=== PATIENT | male | born 1950 | race American Indian/Alaskan Native ===

== ENCOUNTER 2016-12-02 23:19 | Emergency (ER) | payer MEDICARE ==
[2016-12-03] MEDS ORDERED: NACL 0.9% 1000 ML 1,000 ML IV ONE ×2 (01:23→03:27)
[2016-12-03] MEDS ORDERED: TORADOL IV ONE (01:26)
--- NOTE | 2016-12-03 02:32 | Emergency Department Report ---
ED General Adult HPI - General Chief complaint: Hyperglycemia Stated complaint: ELEVATED BLOOD SUGAR, DISCOLORATION IN TOES Time Seen by Provider: 12/03/16 01:16 Source: patient Mode of arrival: Ambulatory Limitations: No Limitations - History of Present Illness Initial comments: 66-year-old male with a past medical history diabetes and seizures presents to the hospital complaining of poorly controlled diabetes and dark discoloration to legs. Patient states he's been compliant with his glipizide, Januvia, and insulin. Despite his sugar has been in the 4 to 500s for the past one week. He denies any nausea, vomiting, or diarrhea. He has dark discoloration to bilateral legs and feet 1 month. He also has chronic paresthesias to legs secondary to diabetic neuropathy. He complains of left knee pain rated 6/10 in intensity and states he has known arthritis/bone to bone contact in denies recent injury. PMD: Hugo Hogan - Related Data Home Medications Medication Instructions Recorded Confirmed Last Taken Cyclobenzaprine [Flexeril 10 MG 10 mg PO BID 09/20/15 09/20/15 09/20/15 TAB] Escitalopram Oxalate [Lexapro] 20 mg PO DAILY 09/20/15 09/20/15 09/20/15 Esomeprazole Magnesium [NexIUM] 40 mg PO QHS 09/20/15 09/20/15 09/19/15 Gabapentin [Neurontin] 600 mg PO TID 09/20/15 09/20/15 09/20/15 Lacosamide [Vimpat] 100 mg PO BID 09/20/15 09/20/15 09/20/15 Montelukast [Singulair] 10 mg PO DAILY 09/20/15 09/20/15 09/20/15 Sitagliptin Phosphate [Januvia] 100 mg PO DAILY 09/20/15 09/20/15 09/20/15 Tamsulosin [Flomax] 0.4 mg PO DAILY 09/20/15 09/20/15 09/20/15 amLODIPine [Norvasc] 10 mg PO DAILY 09/20/15 09/20/15 09/20/15 glipiZIDE [Glucotrol] 10 mg PO DAILY 09/20/15 09/20/15 09/20/15 lamoTRIgine [LaMICtal] 25 mg PO BID 09/20/15 09/20/15 09/20/15 levETIRAcetam [Keppra TAB] 500 mg PO BID 09/20/15 09/20/15 09/20/15 traZODone [Desyrel] 100 mg PO QHS 09/20/15 09/20/15 09/19/15 Previous Rx's Medication Instructions Recorded Last Taken Type Oxycodone HCl/Acetaminophen 1 each PO Q6HR PRN #20 tablet 09/20/15 Unknown Rx [Percocet 10/325 mg] HYDROcodone/APAP 5-325 [[place] 1 each PO Q6HR PRN #20 tablet 12/03/16 Unknown Rx 5/325] Insulin Detemir [Levemir VIAL] 15 unit SQ QHS 30 Days 12/03/16 Unknown Rx Allergies Allergy/AdvReac Type Severity Reaction Status Date / Time No Known Allergies Allergy Unverified 09/09/15 12:05 ED Review of Systems ROS: Stated complaint: ELEVATED BLOOD SUGAR, DISCOLORATION IN TOES Other details as noted in HPI Comment: All other systems reviewed and negative Other: Constitutional: No fevers chills Eyes: No eye pain visual changes ENT: No ear pain or throat pain Neck: Denies pain Respiratory: Denies cough wheezing shortness of breath Cardiovascular: Denies chest pain, palpitations, syncope GI: Denies abdominal pain, nausea, vomiting, diarrhea : Denies dysuria Musculoskeletal: Denies back pain Skin: as per hpi Neurologic: Denies headache, numbness, weakness ED Past Medical Hx - Past Medical History Previous Medical History?: Yes Hx Diabetes: Yes Hx Seizures: Yes Additional medical history: disc - Surgical History Past Surgical History?: Yes Hx Cholecystectomy: Yes - Social History Smoking Status: Current Every Day Smoker Substance Use Type: None - Medications Home Medications: Home Medications Medication Instructions Recorded Confirmed Last Taken Type Cyclobenzaprine [Flexeril 10 MG 10 mg PO BID 09/20/15 09/20/15 09/20/15 History TAB] Escitalopram Oxalate [Lexapro] 20 mg PO DAILY 09/20/15 09/20/15 09/20/15 History Esomeprazole Magnesium [NexIUM] 40 mg PO QHS 09/20/15 09/20/15 09/19/15 History Gabapentin [Neurontin] 600 mg PO TID 09/20/15 09/20/15 09/20/15 History Lacosamide [Vimpat] 100 mg PO BID 09/20/15 09/20/15 09/20/15 History Montelukast [Singulair] 10 mg PO DAILY 09/20/15 09/20/15 09/20/15 History Oxycodone HCl/Acetaminophen 1 each PO Q6HR PRN #20 tablet 09/20/15 Unknown Rx [Percocet 10/325 mg] Sitagliptin Phosphate [Januvia] 100 mg PO DAILY 09/20/15 09/20/15 09/20/15 History Tamsulosin [Flomax] 0.4 mg PO DAILY 09/20/15 09/20/15 09/20/15 History amLODIPine [Norvasc] 10 mg PO DAILY 09/20/15 09/20/15 09/20/15 History glipiZIDE [Glucotrol] 10 mg PO DAILY 09/20/15 09/20/15 09/20/15 History lamoTRIgine [LaMICtal] 25 mg PO BID 09/20/15 09/20/15 09/20/15 History levETIRAcetam [Keppra TAB] 500 mg PO BID 09/20/15 09/20/15 09/20/15 History traZODone [Desyrel] 100 mg PO QHS 09/20/15 09/20/15 09/19/15 History HYDROcodone/APAP 5-325 [[place] 1 each PO Q6HR PRN #20 tablet 12/03/16 Unknown Rx 5/325] Insulin Detemir [Levemir VIAL] 15 unit SQ QHS 30 Days 12/03/16 Unknown Rx ED Physical Exam - General Limitations: No Limitations - Other Other exam information: General: No limitations, patient is alert in no acute distress Head exam: Atraumatic, normocephalic Eyes exam: Normal appearance, pupils equal reactive to light, extraocular movements intact ENT: Moist mucous membrane, normal oropharynx Neck exam: Normal inspection, full range of motion, no meningismus nontender Respiratory exam: Clear to auscultation bilateral, no wheezes, rales, crackles Cardiovascular: Normal rate and rhythm, normal heart sounds Abdomen: Soft, nondistended, and nontender, with normal bowel sounds, no rebound, or guarding Extremity: Full range of motion normal inspection no deformity, 2+ DP pulses equal bilaterally Back: Normal Inspection, full range of motion, no tenderness Neurologic: Alert, oriented x3, cranial nerves intact, no motor or sensory deficit Psychiatric: normal affect, normal mood Skin: Dark discoloration to bilateral legs and feet, no skin ulceration ED Course Vital Signs 12/02/16 12/03/16 12/03/16 23:28 01:10 03:10 Temperature 98.9 F 98.4 F Pulse Rate 82 57 L Respiratory 20 20 20 Rate Blood Pressure 140/72 Blood Pressure 120/64 [Right] O2 Sat by Pulse 96 100 Oximetry 12/03/16 05:06 Temperature Pulse Rate Respiratory 20 Rate Blood Pressure Blood Pressure [Right] O2 Sat by Pulse Oximetry - Reevaluation(s) Reevaluation #1: 12/03/16 02:33 Insulin, Toradol, and normal saline ordered pending labs - Consultations Consultation #1: 12/03/16 05:52 Case discussed with hospitalist Dr. Tam in regards to how to adjust patient' s insulin dosing. Recommends long acting insulin Levemir 50 units daily at bedtime in addition to his current Humalog sliding scale 3 times a day, Glucotrol once daily 10 mg and Januvia 100 mg once daily since he is currently poorly controlled on his current regimen. ED Medical Decision Making - Lab Data Result diagrams: 12/02/16 02:10 12/02/16 02:10 Lab Results 12/02/16 12/02/16 12/02/16 Range/Units 02:10 02:10 02:10 WBC 4.9 (4.5-11.0) K/mm3 RBC 4.34 (3.65-5.03) M/mm3 Hgb 13.2 (11.8-15.2) gm/dl Hct 39.5 (35.5-45.6) % MCV 91 (84-94) fl MCH 30 (28-32) pg MCHC 33 (32-34) % RDW 14.1 (13.2-15.2) % Plt Count 180 (140-440) K/mm3 Add Manual Diff Complete Total Counted 100 Seg Neutrophils % Lottery Manager Seg Neuts % (Manual) 44.0 (40.0-70.0) % Band Neutrophils % 0 % Lymphocytes % (Manual) 41.0 H (13.4-35.0) % Reactive Lymphs % (Man) 0 % Monocytes % (Manual) 12.0 H (0.0-7.3) % Eosinophils % (Manual) 3.0 (0.0-4.3) % Metamyelocytes % 0 % Myelocytes % 0 % Promyelocytes % 0 % Blast Cells % 0 % Nucleated RBC % Not Reportable Seg Neutrophils # Man 2.2 (1.8-7.7) K/mm3 Band Neutrophils # 0.0 K/mm3 Lymphocytes # (Manual) 2.0 (1.2-5.4) K/mm3 Abs React Lymphs (Man) 0.0 K/mm3 Monocytes # (Manual) 0.6 (0.0-0.8) K/mm3 Eosinophils # (Manual) 0.1 (0.0-0.4) K/mm3 Basophils # (Manual) 0.0 (0.0-0.1) K/mm3 Metamyelocytes # 0.0 K/mm3 Myelocytes # 0.0 K/mm3 Promyelocytes # 0.0 K/mm3 Blast Cells # 0.0 K/mm3 WBC Morphology Not Reportable Hypersegmented Neuts Not Reportable Hyposegmented Neuts Not Reportable Hypogranular Neuts Not Reportable Smudge Cells Not Reportable Toxic Granulation Not Reportable Toxic Vacuolation Not Reportable Dohle Bodies Not Reportable Pelger-Huet Anomaly Not Reportable Jr Rods Not Reportable Platelet Estimate Consistent w auto Clumped Platelets Not Reportable Plt Clumps, EDTA Not Reportable Large Platelets Not Reportable Giant Platelets Not Reportable Platelet Satelliting Not Reportable Plt Morphology Comment Not Reportable RBC Morphology Normal Dimorphic RBCs Not Reportable Polychromasia Not Reportable Hypochromasia Not Reportable Poikilocytosis Not Reportable Anisocytosis Not Reportable Microcytosis Not Reportable Macrocytosis Not Reportable Spherocytes Not Reportable Pappenheimer Bodies Not Reportable Sickle Cells Not Reportable Target Cells Not Reportable Tear Drop Cells Not Reportable Ovalocytes Not Reportable Helmet Cells Not Reportable Campos-Roderfield Bodies Not Reportable [place] Rings Not Reportable [place] Cells Not Reportable Bite Cells Not Reportable Crenated Cell Not Reportable Elliptocytes Not Reportable Acanthocytes (Spur) Not Reportable Rouleaux Not Reportable Hemoglobin C Crystals Not Reportable Schistocytes Not Reportable Malaria parasites Not Reportable Twan Bodies Not Reportable Hem Pathologist Commnt No VBG pH 7.366 (7.320-7.420) Sodium 135 L (137-145) mmol/L Potassium 4.2 (3.6-5.0) mmol/L Chloride 95.8 L (98-107) mmol/L Carbon Dioxide 27 (22-30) mmol/L Anion Gap 16 mmol/L BUN 10 (9-20) mg/dL Creatinine 1.6 H (0.8-1.5) mg/dL Estimated GFR 52 ml/min BUN/Creatinine Ratio 6.25 % Glucose 531 H* (75-100) mg/dL POC Glucose (70-105) Calcium 8.7 (8.4-10.2) mg/dL Urine Color (Yellow) Urine Turbidity (Clear) Urine pH (5.0-7.0) Ur Specific [place] (1.003-1.030) Urine Protein (Negative) mg/dL Urine Glucose (UA) (Negative) mg/dL Urine Ketones (Negative) mg/dL Urine Blood (Negative) Urine Nitrite (Negative) Urine Bilirubin (Negative) Urine Urobilinogen (<2.0) mg/dL Ur Leukocyte Esterase (Negative) Urine WBC (Auto) (0.0-6.0) /HPF Urine RBC (Auto) (0.0-6.0) /HPF U Epithel Cells (Auto) (0-13.0) /HPF Hyaline Casts /LPF Ketones 0.6 (0.2-2.8) mg/dL 12/02/16 12/03/16 12/03/16 Range/Units 23:33 01:28 03:26 WBC (4.5-11.0) K/mm3 RBC (3.65-5.03) M/mm3 Hgb (11.8-15.2) gm/dl Hct (35.5-45.6) % MCV (84-94) fl MCH (28-32) pg MCHC (32-34) % RDW (13.2-15.2) % Plt Count (140-440) K/mm3 Add Manual Diff Total Counted Seg Neutrophils % Seg Neuts % (Manual) (40.0-70.0) % Band Neutrophils % % Lymphocytes % (Manual) (13.4-35.0) % Reactive Lymphs % (Man) % Monocytes % (Manual) (0.0-7.3) % Eosinophils % (Manual) (0.0-4.3) % Metamyelocytes % % Myelocytes % % Promyelocytes % % Blast Cells % % Nucleated RBC % Seg Neutrophils # Man (1.8-7.7) K/mm3 Band Neutrophils # K/mm3 Lymphocytes # (Manual) (1.2-5.4) K/mm3 Abs React Lymphs (Man) K/mm3 Monocytes # (Manual) (0.0-0.8) K/mm3 Eosinophils # (Manual) (0.0-0.4) K/mm3 Basophils # (Manual) (0.0-0.1) K/mm3 Metamyelocytes # K/mm3 Myelocytes # K/mm3 Promyelocytes # K/mm3 Blast Cells # K/mm3 WBC Morphology Hypersegmented Neuts Hyposegmented Neuts Hypogranular Neuts Smudge Cells Toxic Granulation Toxic Vacuolation Dohle Bodies Pelger-Huet Anomaly Jr Rods Platelet Estimate Clumped Platelets Plt Clumps, EDTA Large Platelets Giant Platelets Platelet Satelliting Plt Morphology Comment RBC Morphology Dimorphic RBCs Polychromasia Hypochromasia Poikilocytosis Anisocytosis Microcytosis Macrocytosis Spherocytes Pappenheimer Bodies Sickle Cells Target Cells Tear Drop Cells Ovalocytes Helmet Cells Campos-Roderfield Bodies [place] Rings [place] Cells Bite Cells Crenated Cell Elliptocytes Acanthocytes (Spur) Rouleaux Hemoglobin C Crystals Schistocytes Malaria parasites Twan Bodies Hem Pathologist Commnt VBG pH (7.320-7.420) Sodium (137-145) mmol/L Potassium (3.6-5.0) mmol/L Chloride (98-107) mmol/L Carbon Dioxide (22-30) mmol/L Anion Gap mmol/L BUN (9-20) mg/dL Creatinine (0.8-1.5) mg/dL Estimated GFR ml/min BUN/Creatinine Ratio % Glucose (75-100) mg/dL POC Glucose 298 H 416 H 385 H (70-105) Calcium (8.4-10.2) mg/dL Urine Color (Yellow) Urine Turbidity (Clear) Urine pH (5.0-7.0) Ur Specific [place] (1.003-1.030) Urine Protein (Negative) mg/dL Urine Glucose (UA) (Negative) mg/dL Urine Ketones (Negative) mg/dL Urine Blood (Negative) Urine Nitrite (Negative) Urine Bilirubin (Negative) Urine Urobilinogen (<2.0) mg/dL Ur Leukocyte Esterase (Negative) Urine WBC (Auto) (0.0-6.0) /HPF Urine RBC (Auto) (0.0-6.0) /HPF U Epithel Cells (Auto) (0-13.0) /HPF Hyaline Casts /LPF Ketones (0.2-2.8) mg/dL 12/03/16 12/03/16 12/03/16 Range/Units 03:30 04:46 05:31 WBC (4.5-11.0) K/mm3 RBC (3.65-5.03) M/mm3 Hgb (11.8-15.2) gm/dl Hct (35.5-45.6) % MCV (84-94) fl MCH (28-32) pg MCHC (32-34) % RDW (13.2-15.2) % Plt Count (140-440) K/mm3 Add Manual Diff Total Counted Seg Neutrophils % Seg Neuts % (Manual) (40.0-70.0) % Band Neutrophils % % Lymphocytes % (Manual) (13.4-35.0) % Reactive Lymphs % (Man) % Monocytes % (Manual) (0.0-7.3) % Eosinophils % (Manual) (0.0-4.3) % Metamyelocytes % % Myelocytes % % Promyelocytes % % Blast Cells % % Nucleated RBC % Seg Neutrophils # Man (1.8-7.7) K/mm3 Band Neutrophils # K/mm3 Lymphocytes # (Manual) (1.2-5.4) K/mm3 Abs React Lymphs (Man) K/mm3 Monocytes # (Manual) (0.0-0.8) K/mm3 Eosinophils # (Manual) (0.0-0.4) K/mm3 Basophils # (Manual) (0.0-0.1) K/mm3 Metamyelocytes # K/mm3 Myelocytes # K/mm3 Promyelocytes # K/mm3 Blast Cells # K/mm3 WBC Morphology Hypersegmented Neuts Hyposegmented Neuts Hypogranular Neuts Smudge Cells Toxic Granulation Toxic Vacuolation Dohle Bodies Pelger-Huet Anomaly Jr Rods Platelet Estimate Clumped Platelets Plt Clumps, EDTA Large Platelets Giant Platelets Platelet Satelliting Plt Morphology Comment RBC Morphology Dimorphic RBCs Polychromasia Hypochromasia Poikilocytosis Anisocytosis Microcytosis Macrocytosis Spherocytes Pappenheimer Bodies Sickle Cells Target Cells Tear Drop Cells Ovalocytes Helmet Cells Campos-Roderfield Bodies [place] Cells Bite Cells Crenated Cell Elliptocytes Acanthocytes (Spur) Rouleaux Hemoglobin C Crystals Schistocytes Malaria parasites Twan Bodies Hem Pathologist Commnt VBG pH (7.320-7.420) Sodium (137-145) mmol/L Potassium (3.6-5.0) mmol/L Chloride (98-107) mmol/L Carbon Dioxide (22-30) mmol/L Anion Gap mmol/L BUN (9-20) mg/dL Creatinine (0.8-1.5) mg/dL Estimated GFR ml/min BUN/Creatinine Ratio % Glucose (75-100) mg/dL POC Glucose 69 L 76 (70-105) Calcium (8.4-10.2) mg/dL Urine Color Yellow (Yellow) Urine Turbidity Clear (Clear) Urine pH 6.0 (5.0-7.0) Ur Specific [place] 1.022 (1.003-1.030) Urine Protein <15 mg/dl (Negative) mg/dL Urine Glucose (UA) >=500 (Negative) mg/dL Urine Ketones Neg (Negative) mg/dL Urine Blood Neg (Negative) Urine Nitrite Neg (Negative) Urine Bilirubin Neg (Negative) Urine Urobilinogen < 2.0 (<2.0) mg/dL Ur Leukocyte Esterase Neg (Negative) Urine WBC (Auto) < 1.0 (0.0-6.0) /HPF Urine RBC (Auto) 1.0 (0.0-6.0) /HPF U Epithel Cells (Auto) 1.0 (0-13.0) /HPF Hyaline Casts 1 /LPF Ketones (0.2-2.8) mg/dL - Medical Decision Making Patient's glucose improved in the ED with 2 boluses of insulin 10 units, glipizide, and Januvia. No signs of DKA. Leg discoloration appears to be chronic and no signs of infection and pulses intact in the ED. No active infection identified. Patient be referred to his primary care doctor for further insulin and medication adjustment. Patient's blood glucose decreased his 60s but improved to the 70s remained stable after food intake. Long-acting insulin the mail 15 units will be added daily at bedtime. Patient requesting additional pain medication for home. He plans to follow-up with a primary care doctor on Tuesday (next 3 days improvement). Patient has borderline renal insufficiency would be referred to a tech ed/woodshop teacher for further monitoring - Differential Diagnosis DKA, hyperglycemia, PAD, edema Critical Care Time: No Critical care attestation.: If time is entered above; I have spent that time in minutes in the direct care of this critically ill patient, excluding procedure time. ED Disposition Clinical Impression: Renal insufficiency, Arthralgia of knee, left, Diabetic neuropathy Uncontrolled diabetes mellitus Qualifiers: Diabetes mellitus type: type 2 Diabetes mellitus complication status: with hyperglycemia Diabetes mellitus intermodal customer service insulin use: with intermodal customer service use Qualified Code(s): E11.65 - Type 2 diabetes mellitus with hyperglycemia Disposition: DISCHARGED TO HOME OR SELFCARE Is pt being admited?: No Does the pt Need Aspirin: No Condition: Stable Instructions: Diabetes Mellitus Type 2 in Adults (ED), Knee Pain (ED), Diabetic Neuropathy (ED) Additional Instructions: You have slight kidney dysfunction. Normal creatinine is 1.5. Yours is 1.6. The higher than number the worst to kidney function. You will require further monitoring by your primary care doctor or a specialist. I have provided a kidney doctor contact information for follow-up. I have added acting insulin to be taken at bedtime starting 15 units. This may need additional adjustments by your primary care doctor. Return if symptoms worsen. Prescriptions: HYDROcodone/APAP 5-325 [[place] 5/325] 1 each PO Q6HR PRN #20 tablet PRN Reason: Pain Insulin Detemir [Levemir VIAL] 15 unit SQ QHS 30 Days Referrals: HUGO HOGAN MD [Primary Care Provider] - [facility] ANGELO JOSEPH MD [Staff Physician] - 3-5 Days (kidney specialist) Time of Disposition: 05:46
[2016-12-03 02:44] LABS: Hematocrit 39.5 % (35.5-45.6); Hemoglobin 13.2 gm/dl (11.8-15.2); Mean Corpuscular HGB Conc 33 % (32-34); Mean Corpuscular Hemoglobin 30 pg (28-32); Mean Corpuscular Volume 91 fl (84-94); Platelet Count 180 K/mm3 (140-440); Red Blood Count 4.34 M/mm3 (3.65-5.03); Red Cell Distribution Width 14.1 % (13.2-15.2); White Blood Count 4.9 K/mm3 (4.5-11.0)
[2016-12-03 03:08] LABS: B-Hydroxybutyrate 0.6 mg/dL (0.2-2.8); BUN/Creatinine Ratio 6.25; Calcium 8.7 mg/dL (8.4-10.2); Chloride 95.8 mmol/L (98-107); Potassium 4.2 mmol/L (3.6-5.0)
[2016-12-03 03:21] LABS: Blastocytes % (Manual) 0 %
[2016-12-03 03:22] LABS: Diff Status Complete; Platelet Estimate Consistent w Auto; RBC Morphology Normal
[2016-12-03 03:42] LABS: Bilirubin,Urine NEG (Negative); Blood,Urine NEG (Negative); Ketones,Urine NEG (Negative); Leukocyte Esterase,Urine NEG (Negative); Nitrite,Urine NEG (Negative); Protein,Urine <15 mg/dL mg/dL (Negative); Urobilinogen,Urine < 2.0 mg/dL (<2.0); WBC,Urine < 1.0 /HPF (0.0-6.0)
[2016-12-03] MEDS ORDERED: MORPHINE IV ONE (04:54)
[2016-12-03] MEDS ORDERED: ZOFRAN IV ONE (04:54)
[2016-12-03] MEDS ORDERED: D50W (25GM) IV ONE ×3 (07:11→08:00)
[2016-12-03 07:42] VITALS: BP 120/66
== END 2016-12-03 05:57 | disposition home or self-care (01) ==
LOC: ED 23:19
DX: M25.562 Pain in left knee (principal); N28.9 Disorder of kidney and ureter, unspecified; E11.40 Type 2 diabetes mellitus with diabetic neuropathy, unspecified; E11.65 Type 2 diabetes mellitus with hyperglycemia; F17.200 Nicotine dependence, unspecified, uncomplicated; Z79.4 Long term (current) use of insulin
CPT/HCPCS: 36415; 80048; 81001; 82010; 82805; 82962; 85007; 85025; 96361; 96372; 96374; 96375; 99284; J1885; J2270; J2405; J7030; J1815

== ENCOUNTER 2017-01-11 21:43 | Emergency (ER) | payer MEDICARE ==
[2017-01-11] MEDS ORDERED: ATIVAN IV ONE (21:56)
[2017-01-11] MEDS ORDERED: BENADRYL PO ONE (21:56)
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
[2017-01-11 23:06] LABS: Creatine Kinase MB 5.5 ng/mL (0.0-4.0)
[2017-01-11 23:07] LABS: Basophils % (Auto) 0.8 % (0.0-1.8); Eosinophils % (Auto) 1.3 % (0.0-4.3); Hematocrit 40.3 % (35.5-45.6); Hemoglobin 13.7 gm/dl (11.8-15.2); Mean Corpuscular HGB Conc 34 % (32-34); Mean Corpuscular Hemoglobin 31 pg (28-32); Mean Corpuscular Volume 90 fl (84-94); Platelet Count 187 K/mm3 (140-440); Red Blood Count 4.47 M/mm3 (3.65-5.03); Red Cell Distribution Width 14.1 % (13.2-15.2); White Blood Count 7.2 K/mm3 (4.5-11.0)
[2017-01-11 23:08] LABS: Anion Gap 19 mmol/L; BUN/Creatinine Ratio 9.28; Blood Urea Nitrogen 13 mg/dL (9-20); Calcium 9.4 mg/dL (8.4-10.2); Carbon Dioxide 25 mmol/L (22-30); Chloride 97.6 mmol/L (98-107); Creatine Kinase 255 units/L (55-170); Glucose 300 mg/dL (75-100); Sodium 138 mmol/L (137-145)
[2017-01-12 10:29] VITALS: BP 126/72
[2017-01-12] MEDS ORDERED: FLUSH HEPARIN IV ONE (10:40)
== END 2017-01-12 11:09 | disposition home or self-care (01) ==
LOC: ED 21:43
DX: F41.9 Anxiety disorder, unspecified (principal); E11.9 Type 2 diabetes mellitus without complications; F17.210 Nicotine dependence, cigarettes, uncomplicated; F14.90 Cocaine use, unspecified, uncomplicated; Z85.51 Personal history of malignant neoplasm of bladder; Z79.4 Long term (current) use of insulin
CPT/HCPCS: 36415; 80048; 82550; 82553; 84484; 85025; 96374; 99284; G0480; J1642; J2060; 80320

== ENCOUNTER 2017-08-19 17:31 | Emergency (ER) | payer MEDICARE ==
[2017-08-19 18:40] LABS: Basophils % (Auto) 0.8 % (0.0-1.8); Eosinophils % (Auto) 1.3 % (0.0-4.3); Hematocrit 41.4 % (35.5-45.6); Hemoglobin 13.8 gm/dl (11.8-15.2); Mean Corpuscular HGB Conc 33 % (32-34); Mean Corpuscular Hemoglobin 30 pg (28-32); Mean Corpuscular Volume 91 fl (84-94); Platelet Count 218 K/mm3 (140-440); Red Blood Count 4.53 M/mm3 (3.65-5.03); Red Cell Distribution Width 13.7 % (13.2-15.2); White Blood Count 5.8 K/mm3 (4.5-11.0)
[2017-08-19 18:48] LABS: Anion Gap 18 mmol/L; BUN/Creatinine Ratio 19; Blood Urea Nitrogen 25 mg/dL (9-20); Calcium 9.8 mg/dL (8.4-10.2); Carbon Dioxide 26 mmol/L (22-30); Chloride 90.8 mmol/L (98-107); Glucose 437 mg/dL (75-100); Potassium 4.2 mmol/L (3.6-5.0); Sodium 131 mmol/L (137-145)
[2017-08-19] MEDS ORDERED: NACL 0.9% 1000 ML 1,000 ML IV ONE (18:52)
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
[2017-08-19] MEDS ORDERED: ATIVAN PO ONE (22:22)
[2017-08-19 22:52] LABS: Bilirubin,Urine NEG (Negative); Blood,Urine NEG (Negative); Ketones,Urine NEG (Negative); Leukocyte Esterase,Urine NEG (Negative); Nitrite,Urine NEG (Negative); Protein,Urine <15 mg/dL mg/dL (Negative); Urobilinogen,Urine < 2.0 mg/dL (<2.0)
[2017-08-19 22:55] LABS: WBC,Urine < 1.0 /HPF (0.0-6.0)
[2017-08-20] MEDS ORDERED: FLUSH HEPARIN IV ONE (00:08)
[2017-08-20 00:33] VITALS: BP 155/81
== END 2017-08-20 06:16 | disposition home or self-care (01) ==
LOC: ED 17:31
DX: G40.309 Generalized idiopathic epilepsy and epileptic syndromes, not intractable, without status epilepticus (principal); I10 Essential (primary) hypertension; E11.9 Type 2 diabetes mellitus without complications; F17.200 Nicotine dependence, unspecified, uncomplicated; F12.10 Cannabis abuse, uncomplicated; Z90.49 Acquired absence of other specified parts of digestive tract; Z86.19 Personal history of other infectious and parasitic diseases; Z79.4 Long term (current) use of insulin
CPT/HCPCS: 36415; 80048; 81001; 82805; 82962; 85025; 96361; 96374; 99285; J1642; J7030

== ENCOUNTER 2018-02-26 20:16 | Observation (INO) | payer MEDICARE ==
[2018-02-26] MEDS ORDERED: ASPIRIN PO ONE (20:28)
[2018-02-26 21:08] LABS: Basophils % (Auto) 0.5 % (0.0-1.8); Eosinophils # (Auto) 0.1 K/mm3 (0.0-0.4); Eosinophils % (Auto) 2.2 % (0.0-4.3); Hematocrit 36.5 % (35.5-45.6); Hemoglobin 12.6 gm/dl (11.8-15.2); Lymphocytes # (Auto) 2.4 K/mm3 (1.2-5.4); Lymphocytes % (Auto) 37.5 % (13.4-35.0); Mean Corpuscular HGB Conc 35 % (32-34); Mean Corpuscular Hemoglobin 31 pg (28-32); Mean Corpuscular Volume 89 fl (84-94); Monocytes # (Auto) 0.8 K/mm3 (0.0-0.8); Monocytes % (Auto) 11.9 % (0.0-7.3); Platelet Count 290 K/mm3 (140-440); Red Blood Count 4.09 M/mm3 (3.65-5.03); Red Cell Distribution Width 13.9 % (13.2-15.2)
[2018-02-26] MEDS ORDERED: SUBLIMAZE IV ONE (21:12)
[2018-02-26] MEDS ORDERED: ZOFRAN IV ONE (21:12)
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
[2018-02-26] MEDS ORDERED: D50W (25GM) Syringe IV ONE ×2 (21:28→21:35)
[2018-02-26 21:38] LABS: BUN/Creatinine Ratio 12; Blood Urea Nitrogen 16 mg/dL (9-20); Calcium 8.9 mg/dL (8.4-10.2); Hemolysis Index 5
[2018-02-26] MEDS ORDERED: NACL 0.9% 1000 ML 1,000 ML IV ONE (21:39)
--- NOTE | 2018-02-26 23:36 | Cat Scan Report ---
FINAL REPORT EXAM: CT ANGIO CHEST HISTORY: sharp chest pain, pleurisy TECHNIQUE: High-resolution helical axial images were obtained of the chest during intravenous administration of iodinated contrast. Images are reconstructed in the sagittal and coronal planes. PRIORS: Chest x-ray from 02/06/2018 FINDINGS: There is a right-sided Port-A-Cath with the tip in the distal SVC. There is no evidence of pulmonary embolism, the pulmonary arteries opacify normally. The heart and thoracic aorta appear normal. There is a left suprahilar calcified lymph nodes consistent with old granulomatous disease There are mild emphysematous changes in the bilateral upper lung [place]. There is a 12 mm irregularly-shaped density in the right medial upper lobe, series 2, image 35. There is another small irregularly shaped opacity in the right middle lobe, series 2, image 80. There is shrapnel in the left posterior chest and old fractures of the left 4th and 5th ribs. The bones are unremarkable. IMPRESSION: 1. No evidence of pulmonary embolism. 2. Two small irregularly-shaped right lung densities. Follow-up CT is recommended 6 months. 3. Emphysema
--- NOTE | 2018-02-27 00:02 | Cat Scan Report ---
FINAL REPORT EXAM: CT ABDOMEN PELVIS W CON HISTORY: sharp left flank pain TECHNIQUE: Helical CT scan through the abdomen and pelvis during intravenous injection of iodinated contrast. Images are reconstructed in the sagittal and coronal planes. Oral contrast was not given. PRIORS: None. FINDINGS: The liver, pancreas, spleen and right adrenal gland appear normal. There is a stable left adrenal mass measuring 1.2 x 3.7 cm. There are surgical clips in the gallbladder fossa. The kidneys appear normal. The pelvic organs appear grossly normal. The stomach appears grossly within normal limits. There are no abnormally dilated loops of bowel or acute inflammatory changes. A normal-appearing appendix is identified. The abdominal aorta has a normal diameter. There is bilateral inguinal adenopathy. The bones are unremarkable. IMPRESSION: 1. Stable bilateral inguinal adenopathy 2. Stable left adrenal mass 3. No acute findings
[2018-02-27] MEDS ORDERED: PERCOCET 5/325 ONE ×2 (02:26→11:15)
[2018-02-27] MEDS ORDERED: PERCOCET 5/325 PO ONE (02:35)
[2018-02-27] MEDS ORDERED: TYLENOL PO PRN (02:40)
[2018-02-27] MEDS ORDERED: D50W (25GM) Syringe IV PRN (02:40)
[2018-02-27] MEDS ORDERED: SODIUM CHLORIDE FLUSH SYRINGE 10 ML IV PRN (02:40)
[2018-02-27] MEDS ORDERED: ZOFRAN IV PRN (02:40)
--- NOTE | 2018-02-27 02:49 | History and Physical Report ---
History of Present Illness Date of examination: 02/27/18 History of present illness: 67-year-old man with a history of hypertension, diabetes, hepatitis C comes emergency room with complaints of chest pain in the left chest that started last night which he described as a stabbing pain, constant, intensity 5/10, radiating to the neck and back. He denies nausea vomiting, transfer, diaphoresis or palpitation Review of systems Constitutional: no weight loss, chills Ears, eyes, nose, mouth and throat: no nasal congestion, no nasal discharge, no sinus pressure, no vision change, no red eye. Neck: No neck pain or rigidity. Cardiovascular: no palpitations Respiratory: No cough, shortness of breath Gastrointestinal: no abdominal pain, hematochezia Genitourinary : no dysuria, frequency , no hematuria Musculoskeletal: no joint swelling or muscle ache Integumentary: no rash, no pruritis Neurological: no parathesias, no numbness, no focal weakness Endocrine: no cold or heat intolerance, no polyuria or polydipsia Hematologic/Lymphatic: no easy bruising, no easy bleeding, no gland swelling Allergic/Immunologic: no urticaria, no angioedema. PAST MEDICAL HISTORY:hypertension, diabetes, hepatitis C PAST SURGICAL HISTORY: Hernia repair, eczema, port placement SOCIAL HISTORY: Denies alcohol, drugs, smoke one third pack a day FAMILY HISTORY: Hypertension Medications and Allergies Allergies Allergy/AdvReac Type Severity Reaction Status Date / Time No Known Allergies Allergy Unverified 09/09/15 12:05 Home Medications Medication Instructions Recorded Confirmed Last Taken Type Cyclobenzaprine [Flexeril 10 MG 10 mg PO BID 09/20/15 02/07/18 09/20/15 History TAB] Escitalopram Oxalate [Lexapro] 20 mg PO DAILY 09/20/15 02/07/18 09/20/15 History Esomeprazole Magnesium [NexIUM] 40 mg PO QHS 09/20/15 02/07/18 09/19/15 History Gabapentin [Neurontin] 600 mg PO TID 09/20/15 02/07/18 09/20/15 History Lacosamide [Vimpat] 100 mg PO BID 09/20/15 02/07/18 09/20/15 History Montelukast [Singulair] 10 mg PO DAILY 09/20/15 02/07/18 09/20/15 History Oxycodone HCl/Acetaminophen 1 each PO Q6HR PRN #20 tablet 09/20/15 02/07/18 Unknown Rx [Percocet 10/325 mg] Sitagliptin Phosphate [Januvia] 100 mg PO DAILY 09/20/15 02/07/18 09/20/15 History Tamsulosin [Flomax] 0.4 mg PO DAILY 09/20/15 02/07/18 09/20/15 History amLODIPine [Norvasc] 10 mg PO DAILY 09/20/15 02/07/18 09/20/15 History glipiZIDE [Glucotrol] 10 mg PO DAILY 09/20/15 02/07/18 09/20/15 History lamoTRIgine [LaMICtal] 25 mg PO BID 09/20/15 02/07/18 09/20/15 History levETIRAcetam [Keppra TAB] 500 mg PO BID 09/20/15 02/07/18 09/20/15 History traZODone [Desyrel] 100 mg PO QHS 09/20/15 02/07/18 09/19/15 History HYDROcodone/APAP 5-325 [[place] 1 each PO Q6HR PRN #20 tablet 12/03/16 02/07/18 Unknown Rx 5-325 mg TAB] Insulin Detemir [Levemir VIAL] 20 unit SQ QHS 30 Days #1 vial 02/09/18 Unknown Rx Insulin Lispro [HumaLOG VIAL] 5 units SQ AC #1 vial 02/09/18 Unknown Rx Lisinopril [Zestril TAB] 10 mg PO QDAY #30 tablet 02/09/18 Unknown Rx Polyethylene Glycol 3350 [Miralax 17 gm PO QDAY PRN #1 bottle 02/09/18 Unknown Rx 3350] Active Meds: Active Medications Sodium Chloride (Nacl 0.9% 1000 Ml) 1,000 mls @ 125 mls/hr IV ONCE ONE Stop: 02/27/18 05:38 Last Admin: 02/26/18 23:02 Dose: 125 mls/hr Exam - Physical Exam Narrative exam: Gen. appearance: Patient lying in bed, no apparent distress HEENT: Normocephalic, atraumatic, pupils equally round and reactive to light, extraocular movement intact, and no sclericterus,. No JVD or thyromegaly or nodule,neck supple, no carotid bruit ,mucous membranes moist, no exudate or erythema Heart: S1, S2, regular rate and rhythm Lungs: Clear to auscultation bilaterally, breathing comfortable Abdomen: Positive bowel sounds, nontender, nondistended, no organomegaly Extremity: No edema, cyanosis, clubbing Skin: No rash, nodules, warm, dry Neuro: Oriented 3, cranial nerves II-12 intact, speech is fluent, motor and sensory intact - Constitutional Vitals: Temp Pulse Resp BP Pulse Ox 98.3 F 80 13 144/75 95 02/26/18 20:35 02/26/18 22:16 02/27/18 02:31 02/27/18 02:31 02/26/18 22:16 Results - Labs CBC & Chem 7: 02/26/18 20:47 02/26/18 20:47 Labs: Abnormal lab results 02/26/18 02/26/18 02/26/18 Range/Units 20:47 20:47 21:32 MCHC 35 H (32-34) % Lymph % (Auto) 37.5 H (13.4-35.0) % [place] % (Auto) 11.9 H (0.0-7.3) % Potassium 3.5 L (3.6-5.0) mmol/L Glucose 50 L (75-100) mg/dL POC Glucose < 40 L (70-105) - Imaging and Cardiology EKG: image reviewed CT scan - abdomen: report reviewed CT scan - chest: report reviewed CT scan - pelvis: report reviewed Assessment and Plan Assessment Chest pain, rule out ACS Hypertension Diabetes type 2 Hepatitis C Plan Admit to medicine Check cardiac enzymes, stress test Check fingersticks and initiate insulin sliding-scale Continue appropriate outpatient medications Percocet for pain, DVT prophylaxis
[2018-02-27 04:35] LABS: Creatine Kinase MB 2.3 ng/mL (0.0-4.0)
[2018-02-27] MEDS: PERCOCET 5/325 PO PRN ×5 (04:54→18:26)
[2018-02-27] MEDS: HumuLIN R SUB-Q SCH ×3 (07:30→15:30)
[2018-02-27] MEDS ORDERED: SODIUM CHLORIDE FLUSH SYRINGE 10 ML IV SCH (10:00)
[2018-02-27] MEDS ORDERED: K-DUR PO NR (10:00)
[2018-02-27] MEDS ORDERED: LOVENOX SUB-Q SCH (10:00)
[2018-02-27] MEDS ORDERED: ASPIRIN PO SCH (10:00)
[2018-02-27] MEDS ORDERED: LEXISCAN IV ONE ×2 (11:32)
[2018-02-27 12:38] LABS: Creatine Kinase MB 2.8 ng/mL (0.0-4.0)
[2018-02-27 12:55] VITALS: BP 153/74
[2018-02-27] MEDS ORDERED: NON-FORMULARY (Escitalopram Oxalate [Lexapro] 20 MG) PO SCH (17:45)
[2018-02-27] MEDS ORDERED: MIRALAX 3350 PO PRN (17:45)
[2018-02-27] MEDS ORDERED: ZESTRIL PO SCH (18:00)
[2018-02-27] MEDS ORDERED: GLUCOTROL PO SCH (18:00)
[2018-02-27] MEDS ORDERED: NON-FORMULARY (Sitagliptin Phosphate [Januvia] 100 MG) PO SCH (18:00)
[2018-02-27] MEDS ORDERED: NORVASC PO SCH (18:00)
[2018-02-27] MEDS ORDERED: TRADJENTA PO SCH (18:00)
[2018-02-27] MEDS ORDERED: LEXAPRO PO SCH (18:00)
[2018-02-27] MEDS ORDERED: FLOMAX PO SCH (18:00)
[2018-02-27] MEDS ORDERED: SINGULAIR PO SCH (18:00)
--- NOTE | 2018-02-27 18:00 | Discharge Summary ---
Providers - Providers Date of Admission: 02/27/18 02:40 Date of discharge: 02/27/18 Attending physician: EARL Urbano Primary care physician: ACS---Doing well. Hospitalization Condition: Fair Procedures: Stress test negative Hospital course: 67-year-old man with a history of hypertension, diabetes, hepatitis C comes emergency room with complaints of chest pain in the left chest that started last night which he described as a stabbing pain, constant, intensity 5/10, radiating to the neck and back. He denies nausea vomiting, transfer, diaphoresis or palpitation Review of systems Assessment and Plan Assessment Chest pain, rule out ACS Hypertension Diabetes type 2 Hepatitis C Plan Check cardiac enzymes, stress test----If negative d/c home Check fingersticks and initiate insulin sliding-scale Continue appropriate outpatient medications Percocet for pain, DVT prophylaxis Disposition: - TO HOME OR SELFCARE - Discharge Diagnoses (1) Chest pain Status: Acute Qualifiers: Ischemic chest pain type: unspecified angina pectoris type Comment: Stress test negative D/c home (2) IDDM (insulin dependent diabetes mellitus) Status: Chronic Comment: Cont Insulin (3) GERD (gastroesophageal reflux disease) Status: Chronic Qualifiers: Esophagitis presence: without esophagitis Qualified Code(s): K21.9 - Gastro -esophageal reflux disease without esophagitis Comment: Cont PPIs (4) Seizure disorder Status: Chronic Comment: Cont Vimpat Keppra and Lamotrigine Core Measure Documentation - Palliative Care Palliative Care/ Comfort Measures: Not Applicable - Core Measures Any of the following diagnoses?: none Exam - Constitutional Vitals: Temp Pulse Resp BP Pulse Ox 97.8 F 85 20 153/74 98 02/27/18 07:42 02/27/18 12:22 02/27/18 07:42 02/27/18 12:22 02/27/18 10:21 General appearance: Present: no acute distress, well-nourished - EENT Eyes: Present: PERRL ENT: hearing intact, clear oral mucosa - Neck Neck: Present: supple, normal ROM - Respiratory Respiratory effort: normal Respiratory: bilateral: CTA - Cardiovascular Heart Sounds: Present: S1 & S2. Absent: rub, click - Extremities Extremities: pulses symmetrical, No edema Peripheral Pulses: within normal limits - Abdominal General gastrointestinal: Present: soft, non-tender, non-distended, normal bowel sounds Male genitourinary: Present: normal - Integumentary Integumentary: Present: clear, warm, dry - Musculoskeletal Musculoskeletal: gait normal, strength equal bilaterally - Psychiatric Psychiatric: appropriate mood/affect, intact judgment & insight - Neurologic Neurologic: CNII-XII intact, moves all extremities Plan Activity: no restrictions Diet: low fat, low cholesterol, low salt Follow up with: PRIMARY CARE, [Referring] - 3-5 Days
[2018-02-27] MEDS ORDERED: FLUSH HEPARIN IV ONE (18:33)
[2018-02-27] MEDS ORDERED: ANTIBIOTIC OINT TP PRN (18:33)
[2018-02-27] MEDS ORDERED: NEURONTIN PO SCH (20:00)
[2018-02-27] MEDS ORDERED: TRIPLE ANTIBIOTIC TP SCH (20:00)
[2018-02-27] MEDS ORDERED: NON-FORMULARY (Gabapentin [Neurontin] 600 MG) PO SCH (20:00)
[2018-02-27] MEDS ORDERED: FLEXERIL PO SCH (22:00)
[2018-02-27] MEDS ORDERED: NON-FORMULARY (Esomeprazole Magnesium [Nexium] 40 MG) PO SCH (22:00)
[2018-02-27] MEDS ORDERED: LANTUS SUB-Q SCH (22:00)
[2018-02-27] MEDS ORDERED: KEPPRA PO SCH (22:00)
[2018-02-27] MEDS ORDERED: DESYREL PO SCH (22:00)
[2018-02-27] MEDS ORDERED: PROTONIX PO SCH (22:00)
[2018-02-27] MEDS ORDERED: LaMICtal PO SCH (22:00)
[2018-02-27] MEDS ORDERED: VIMPAT PO SCH (22:00)
[2018-02-27] MEDS ORDERED: NON-FORMULARY (Insulin Detemir [Levemir Vial] 20 UNIT) SQ SCH (22:00)
--- NOTE | 2018-02-28 04:29 | Treadmill Report ---
THALLIUM STRESS TEST LEFT VENTRICLE: Left ventricular chamber size is within normal spread. Perfusion study demonstrates mild diaphragmatic attenuation artifact, but otherwise fairly homogeneous uptake of the tracer in all segments. No significant perfusion defects identified. Gated analysis demonstrates normal left ventricular systolic function, ejection fraction 64%. CONCLUSION: Suboptimal perfusion study, no demonstrable ischemic coronary disease. Clinical correlation is recommended. JOB# [id number] CA/NTS
[2018-02-28] MEDS ORDERED: HumaLOG SUB-Q SCH (07:30)
== END 2018-02-27 20:13 | disposition home or self-care (01) ==
LOC: ED 20:16 → 4A 02-27 02:40 → INTOOBSV 02-27 02:40
PROVIDERS: ADMIT Internal Medicine; ATTEND Internal Medicine
DX: R07.89 Other chest pain (principal); I10 Essential (primary) hypertension; E11.9 Type 2 diabetes mellitus without complications; B19.20 Unspecified viral hepatitis C without hepatic coma
CPT/HCPCS: 36415; 71275; 74177; 78452; 80048; 82550; 82553; 82962; 84484; 85025; 93005; 93010; 93017; 96361; 96372; 96374; 96375; A9502; G0378; J1642; J1650; J2405; J2785; J3010; J7030; Q9967; A6250; J1815

== ENCOUNTER 2018-04-18 13:18 | Emergency (ER) | payer MEDICARE ==
[2018-04-18] MEDS ORDERED: NACL 0.9% 1000 ML 1,000 ML IV ONE (14:12)
[2018-04-18] MEDS ORDERED: ZOFRAN IV ONE ×3 (14:12→21:20)
[2018-04-18] MEDS ORDERED: PEPCID IV ONE (14:12)
[2018-04-18] MEDS ORDERED: TORADOL IV ONE (14:13)
--- NOTE | 2018-04-18 14:14 | Emergency Department Report ---
Blank Doc - Documentation Documentation: Patient is a 68-year-old gentleman who is presenting with 1 month of epigastric pain. Patient has nausea associated with this pain. Patient states he is seeing his primary care physician several times and was sent here from their office to be evaluated. Patient denies any fevers chills cough cold congestion at this time. Patient states the pain is 8 out of 10 in severity. Patient will have laboratory studies done a CT of his abdomen and pelvis.
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
[2018-04-18 15:54] LABS: Bilirubin,Urine NEG (Negative); Blood,Urine SM (Negative); Color,Urine Yellow (Yellow); Urobilinogen,Urine < 2.0 mg/dL (<2.0)
[2018-04-18 16:15] LABS: Basophils # (Auto) 0.1 K/mm3 (0.0-0.1); Basophils % (Auto) 1.2 % (0.0-1.8); Eosinophils # (Auto) 0.1 K/mm3 (0.0-0.4); Eosinophils % (Auto) 0.9 % (0.0-4.3); Hemoglobin 14.2 gm/dl (11.8-15.2); Lymphocytes # (Auto) 2.4 K/mm3 (1.2-5.4); Mean Corpuscular HGB Conc 34 % (32-34); Mean Corpuscular Hemoglobin 31 pg (28-32); Mean Corpuscular Volume 92 fl (84-94); Monocytes # (Auto) 0.5 K/mm3 (0.0-0.8); Monocytes % (Auto) 7.5 % (0.0-7.3); Platelet Count 238 K/mm3 (140-440); Red Blood Count 4.57 M/mm3 (3.65-5.03); Red Cell Distribution Width 13.3 % (13.2-15.2)
[2018-04-18 16:30] LABS: Alanine Aminotransferase 22 units/L (7-56); Albumin 3.9 g/dL (3.9-5); BUN/Creatinine Ratio 9; Blood Urea Nitrogen 9 mg/dL (9-20); Calcium 9.3 mg/dL (8.4-10.2); Hemolysis Index 13
[2018-04-18] MEDS ORDERED: MORPHINE IV ONE ×2 (18:37→21:16)
[2018-04-18 19:35] VITALS: BP 145/81
[2018-04-18] MEDS ORDERED: MORPHINE ONE (21:18)
[2018-04-18] MEDS ORDERED: ZOFRAN ONE (21:18)
[2018-04-18] MEDS ORDERED: MORPHINE IM ONE (21:20)
--- NOTE | 2018-04-18 21:20 | Cat Scan Report ---
FINAL REPORT PROCEDURE: CT ABDOMEN PELVIS WO CON TECHNIQUE: Computerized axial tomography of the abdomen and pelvis was performed without intravenous contrast. This study is performed without intravascular contrast material and its sensitivity for abdominal and pelvic pathology, including neoplasms, inflammation, abscess, free fluid, thrombosis, arterial dissection and infarction, is reduced compared with a contrast enhanced study. HISTORY: abdominal pain COMPARISON: No prior studies are available for comparison. FINDINGS: Lower Lung tillman: Mild emphysematous changes and fibrosis seen in the lung bases which otherwise are clear. Upper Abdomen: Gallbladder is surgically absent. Intrahepatic ducts are not distended. The liver showed no focal abnormalities. The unenhanced images of the pancreas, the spleen and right adrenal gland are unremarkable. There is a stable oval low-density nodule in the left adrenal gland. Kidneys, Ureters and Urinary bladder: No abnormality is seen. Retroperitoneum: Atherosclerotic changes are seen in the abdominal aorta. No aneurysm is visualized. Nonspecific subcentimeter lymph nodes are seen in the retroperitoneum. No pathologically enlarged lymph nodes are identified. Bowel: Bowel loops show no focal abnormalities. No evidence of bowel obstruction or ascites. There is no free intraperitoneal gas. Normal-appearing appendix is seen in the right lower quadrant directed superior laterally. Multiple nonspecific gas-filled loops of bowel project over the abdomen and pelvis. Reproductive organs: There is mild nonspecific prostate enlargement Other: No acute bony abnormalities are seen. There appears to be a subchondral cyst lateral aspect of the right SI joint. This is unchanged. IMPRESSION: No acute abnormalities are identified. Mild emphysematous changes and fibrosis seen in the lung bases. Prior cholecystectomy. Stable oval low-density nodule left adrenal gland. Nonspecific bowel gas pattern. Mild nonspecific prostate enlargement..
== END 2018-04-18 22:37 | disposition home or self-care (01) ==
LOC: ED 13:18
DX: R10.13 Epigastric pain (principal); R11.0 Nausea; I12.9 Hypertensive chronic kidney disease with stage 1 through stage 4 chronic kidney disease, or unspecified chronic kidney disease; E11.22 Type 2 diabetes mellitus with diabetic chronic kidney disease; N18.3 Chronic kidney disease, stage 3 (moderate); Z79.4 Long term (current) use of insulin; Z90.49 Acquired absence of other specified parts of digestive tract
CPT/HCPCS: 36415; 71045; 74176; 80053; 81001; 83690; 85025; 93005; 93010; 96361; 96374; 96375; 96376; 99284; J1885; J2270; J2405; J7030

== ENCOUNTER 2019-01-31 21:42 | Emergency (ER) | payer MEDICARE ==
--- NOTE | 2019-01-31 22:00 | Emergency Department Report ---
Blank Doc - Documentation Documentation: This is a 68-year-old male that presents with chest pain with SOB. Patient also stated has epigastric abdominal pain. This initial assessment/diagnostic orders/clinical plan/treatment(s) is/are subject to change based on patient's health status, clinical progression and re-assessment by fellow clinical providers in the ED. Further treatment and workup at subsequent clinical providers discretion. Patient/guardians urged not to elope from the ED as their condition may be serious if not clinically assessed and managed. Initial orders include: 1- Patient sent to MAIN ED for further evaluation and treatment 2- labs 3- CXR 4- EKG
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
[2019-01-31 23:16] LABS: Hematocrit 36.5 % (35.5-45.6); Hemoglobin 12.6 gm/dl (11.8-15.2); Mean Corpuscular HGB Conc 35 % (32-34); Mean Corpuscular Volume 88 fl (84-94); Platelet Count 178 K/mm3 (140-440); Red Blood Count 4.14 M/mm3 (3.65-5.03)
[2019-01-31] MEDS ORDERED: ALUM-MAG HYDROX-SIMETH 200-200-20MG/5ML PO ONE (23:17)
[2019-01-31] MEDS ORDERED: PEPCID IV ONE (23:17)
[2019-01-31] MEDS ORDERED: TORADOL IV ONE (23:17)
[2019-01-31 23:20] LABS: BUN/Creatinine Ratio 11; Blood Urea Nitrogen 16 mg/dL (9-20); Calcium 9.4 mg/dL (8.4-10.2); Hemolysis Index 5
[2019-01-31] MEDS ORDERED: ZOFRAN IV ONE (23:20)
[2019-01-31 23:24] LABS: Alanine Aminotransferase 9 units/L (7-56); Albumin 3.8 g/dL (3.9-5)
[2019-01-31 23:28] LABS: Bilirubin,Direct < 0.2 mg/dL (0-0.2)
[2019-01-31 23:35] LABS: INR 0.95 (0.87-1.13)
[2019-01-31 23:36] LABS: Partial Thromboplastin Time 31.1 Sec. (24.2-36.6)
--- NOTE | 2019-02-01 00:07 | Cat Scan Report ---
PROCEDURE: CT ABDOMEN PELVIS WO CON TECHNIQUE: Computerized axial tomography of the abdomen and pelvis was performed without intravenous contrast. This study is performed without intravascular contrast material and its sensitivity for ab dominal and pelvic pathology, including neoplasms, inflammation, abscess, free fluid, thrombosis, art erial dissection and infarction, is reduced compared with a contrast enhanced study. CT DOSE LENGTH PRODUCT: mGycm HISTORY: no bm in 8 days, abd pain , hx of surgery COMPARISONS: None . FINDINGS: Liver, spleen, pancreas and bilateral adrenal glands are within normal limits. Bilateral kidneys are unremarkable. Urinary bladder is well-distended with normal outlines. Mild degree free fluid is ident ified in the pelvic cavity. There is no free air. Status post cholecystectomy. Small bowel loops are within normal limits. Moderate degree of residual stool is noted in the colon. Appendix is normal. T here is mild degree of prostatomegaly. Vertebral height is normal. Lower lumbar facet arthropathy is identified. IMPRESSION: Minimal degree of ascites Otherwise No obvious acute intra-abdominal or pelvic pathology as visualized on this noncontrast stud y. Moderate degree of residual stool. Mild degree of prostatomegaly This document is electronically signed by Frankie Machado MD., February 01 2019 12:05:08 AM ET
[2019-02-01] MEDS ORDERED: CEPHULAC PO ONE (00:14)
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
[2019-02-01] MEDS ORDERED: LIDOCAINE VISCOUS 2% PO ONE (01:17)
[2019-02-01] MEDS ORDERED: CITRATE OF MAGNESIA PO ONE (02:50)
[2019-02-01 03:37] LABS: Band Neutrophils # (Manual) 0.2 K/mm3; Basophils % (Manual) 0 % (0.0-1.8); Eosinophils % (Manual) 0 % (0.0-4.3); RBC Morphology Normal; Total Cells Counted 100
[2019-02-01 04:47] VITALS: BP 133/82
== END 2019-02-01 05:15 | disposition home or self-care (01) ==
LOC: ED 21:42
DX: K21.9 Gastro-esophageal reflux disease without esophagitis (principal); K59.00 Constipation, unspecified; E11.22 Type 2 diabetes mellitus with diabetic chronic kidney disease; I12.9 Hypertensive chronic kidney disease with stage 1 through stage 4 chronic kidney disease, or unspecified chronic kidney disease; N18.3 Chronic kidney disease, stage 3 (moderate); Z79.4 Long term (current) use of insulin; F17.200 Nicotine dependence, unspecified, uncomplicated; Z90.49 Acquired absence of other specified parts of digestive tract; Z79.899 Other long term (current) drug therapy
CPT/HCPCS: 36415; 71046; 74176; 80048; 80076; 83690; 84484; 85007; 85025; 85610; 85730; 93005; 93010; 96374; 96375; 99285; J1885; J2405

== ENCOUNTER 2019-07-09 18:00 | Emergency (ER) | payer MEDICARE | END 2019-07-09 18:05 | disposition left against medical advice (07) | LOC: ED 18:00 | DX: R73.9 Hyperglycemia, unspecified (principal); Z53.21 Procedure and treatment not carried out due to patient leaving prior to being seen by health care provider ==

== ENCOUNTER 2019-08-29 22:13 | Emergency (ER) | payer MEDICARE ==
[2019-08-29] MEDS ORDERED: fentaNYL 100 MCG/2 ML INJ IV ONE (22:51)
[2019-08-29] MEDS ORDERED: ONDANSETRON 4 MG/2 ML INJ IV ONE (22:51)
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
--- NOTE | 2019-08-30 00:11 | Cat Scan Report ---
CT head/brain wo con INDICATION: Head injury after fall from bed. TECHNIQUE: All CT scans at this location are performed using the following dose modulation technique: Automated exposure control. CONTRAST: None. COMPARISON: None available. FINDINGS: The ventricular system is appropriate in size and configuration without midline shift. Nega tive for mass, stroke or hemorrhage. Imaged portions the paranasal sinuses and bones are unremarkable. IMPRESSION: Negative CT brain without contrast. Signer Name: Dre Polanco MD Signed: 08/30/2019 12:07 AM Workstation Name: [id number]
--- NOTE | 2019-08-30 00:15 | Cat Scan Report ---
CT cervical spine wo con INDICATION: Head injury after fall from bed. TECHNIQUE: All CT scans at this location are performed using the following dose modulation technique: Automated exposure control. CONTRAST: None. COMPARISON: None available. FINDINGS: Alignment is satisfactory without vertebral compression. Mild/moderate degenerative disc di sease extends from C2-C7. Small posterior osteophytes are present at multiple levels. Neuroforaminal narrowing is greatest at C3-4 on the left and C4-5 on the right where changes are moderate. IMPRESSION: 1. Negative for bony injury. 2. Diffuse DDD is mild/moderate. 3. More localized neuroforaminal narrowing C3-4 on the left and C4-5 on the right. Signer Name: Dre Polanco MD Signed: 08/30/2019 12:11 AM Workstation Name: [id number]
[2019-08-30] MEDS ORDERED: HYDROmorphone 1 MG/1 ML INJ IV ONE ×3 (00:19→01:30)
--- NOTE | 2019-08-30 00:34 | XRay Report ---
LEFT HAND 3 VIEWS. INDICATION / CLINICAL INFORMATION: pain after fall from standing on bed COMPARISON: None available. FINDINGS: BONES / JOINT(S): No acute fracture or subluxation. Mild/moderate DJD first carpometacarpal joint. SOFT TISSUES: No significant abnormality. ADDITIONAL FINDINGS: None. Signer Name: Dre Polanco MD Signed: 08/30/2019 12:30 AM Workstation Name: [id number]
--- NOTE | 2019-08-30 00:42 | XRay Report ---
LEFT FOREARM 3 VIEWS INDICATION / CLINICAL INFORMATION: pain after fall from standing on bed COMPARISON: None available. FINDINGS: BONES / JOINT(S): No acute fracture or subluxation. No significant arthritis. SOFT TISSUES: No significant abnormality. ADDITIONAL FINDINGS: None. Signer Name: Dre Polanco MD Signed: 08/30/2019 12:37 AM Workstation Name: [employer]
--- NOTE | 2019-08-30 00:43 | XRay Report ---
LEFT HIP 2 VIEWS INDICATION / CLINICAL INFORMATION: pain after fall from standing on bed COMPARISON: None available. FINDINGS: BONES / JOINT(S): No acute fracture or subluxation. No significant arthritis. SOFT TISSUES: No significant abnormality. ADDITIONAL FINDINGS: None. Signer Name: Dre Polanco MD Signed: 08/30/2019 12:38 AM Workstation Name: [email or web address]
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
--- NOTE | 2019-08-30 00:45 | XRay Report ---
LUMBAR SPINE 3 VIEWS INDICATION / CLINICAL INFORMATION: pain after fall from standing on bed COMPARISON: None available. FINDINGS: BONES / JOINT(S): Grade 1 anterolisthesis L4 on L5. Negative for vertebral compression. No significan t arthritis. SOFT TISSUES: No significant abnormality. ADDITIONAL FINDINGS: None. Signer Name: Dre Polanco MD Signed: 08/30/2019 12:41 AM Workstation Name: [id number]
[2019-08-30 02:16] VITALS: BP 154/80
== END 2019-08-30 02:05 | disposition home or self-care (01) ==
LOC: ED 22:13
DX: S16.1XXA Strain of muscle, fascia and tendon at neck level, initial encounter (principal); S40.012A Contusion of left shoulder, initial encounter; S70.02XA Contusion of left hip, initial encounter; S60.222A Contusion of left hand, initial encounter; S09.90XA Unspecified injury of head, initial encounter; F17.200 Nicotine dependence, unspecified, uncomplicated; Z90.49 Acquired absence of other specified parts of digestive tract; Z79.899 Other long term (current) drug therapy; Z79.4 Long term (current) use of insulin; W06.XXXA Fall from bed, initial encounter; Y93.89 Activity, other specified; Y92.89 Other specified places as the place of occurrence of the external cause; Y99.8 Other external cause status
CPT/HCPCS: 70450; 72100; 72125; 73030; 73090; 73130; 73502; 96374; 96375; 96376; 99285; J1170; J1642; J2405; J3010

== ENCOUNTER 2019-09-17 12:17 | Emergency (ER) | payer MEDICARE ==
[2019-09-17] MEDS ORDERED: SODIUM CHLORIDE 0.9% 1000 ML 1,000 ML IV ONE (13:03)
[2019-09-17] MEDS ORDERED: INSULIN REGULAR, HUMAN 100 UNITS/1 ML IV ONE ×2 (13:58→16:20)
[2019-09-17 13:59] LABS: Bilirubin,Urine NEG (Negative); Blood,Urine NEG (Negative); Color,Urine Straw (Yellow); Urobilinogen,Urine < 2.0 mg/dL (<2.0); WBC,Urine < 1.0 /HPF (0.0-6.0)
[2019-09-17 14:04] LABS: Basophils % (Auto) 0.3 % (0.0-1.8); Eosinophils % (Auto) 0.7 % (0.0-4.3); Hematocrit 34.8 % (35.5-45.6); Hemoglobin 11.8 gm/dl (11.8-15.2); Lymphocytes # (Auto) 1.5 K/mm3 (1.2-5.4); Lymphocytes % (Auto) 39.9 % (13.4-35.0); Mean Corpuscular HGB Conc 34 % (32-34); Mean Corpuscular Volume 92 fl (84-94); Monocytes # (Auto) 0.3 K/mm3 (0.0-0.8); Monocytes % (Auto) 8.1 % (0.0-7.3); Platelet Count 213 K/mm3 (140-440); Red Blood Count 3.78 M/mm3 (3.65-5.03); Red Cell Distribution Width 13.8 % (13.2-15.2)
[2019-09-17 14:09] LABS: BUN/Creatinine Ratio 19; Blood Urea Nitrogen 28 mg/dL (9-20); Calcium 9.1 mg/dL (8.4-10.2); Hemolysis Index 3
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
[2019-09-17 16:09] LABS: Alanine Aminotransferase 9 units/L (7-56); Albumin 3.9 g/dL (3.9-5)
[2019-09-17 16:34] LABS: Bilirubin,Direct < 0.2 mg/dL (0-0.2)
[2019-09-17 17:51] VITALS: BP 123/57
== END 2019-09-17 17:53 | disposition home or self-care (01) ==
LOC: ED 12:17
DX: E11.65 Type 2 diabetes mellitus with hyperglycemia (principal); M25.512 Pain in left shoulder; I12.9 Hypertensive chronic kidney disease with stage 1 through stage 4 chronic kidney disease, or unspecified chronic kidney disease; E11.22 Type 2 diabetes mellitus with diabetic chronic kidney disease; N18.3 Chronic kidney disease, stage 3 (moderate); F17.200 Nicotine dependence, unspecified, uncomplicated; Z79.899 Other long term (current) drug therapy
CPT/HCPCS: 36415; 80048; 80076; 81001; 82010; 82805; 82962; 85025; 96374; 96376; 99284; J1642; J7030; J1815

== ENCOUNTER 2019-09-24 17:19 | Emergency (ER) | payer MEDICARE ==
--- NOTE | 2019-09-24 19:39 | Event Note ---
ED Screening Note Date of service: 09/24/19 Time: 19:34 ED Screening Note: 69 y o male pmh of Diabetes was sent here for hyperglycemia office could not assess medi port to give IVF 10 units was given SQ at pcp office pt is a hard stick with no vein assess so he has a medi port FS:[id number] in EMS , 299 in triage Pt insisting that he was sent here to get IVF due to dehydration This initial assessment/diagnostic orders/clinical plan/treatment(s) is/are subject to change based on patients health status, clinical progression and re- assessment by fellow clinical providers in the ED. Further treatment and workup at subsequent clinical providers discretion. Patient/guardian urged not to elope from the ED as their condition may be serious if not clinically assessed and managed. Initial orders include: labs IVF main side eval
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
[2019-09-24] MEDS ORDERED: SODIUM CHLORIDE 0.9% 1000 ML 1,000 ML IV ONE (22:30)
[2019-09-24 23:34] LABS: Basophils % (Auto) 0.3 % (0.0-1.8); Eosinophils # (Auto) 0.1 K/mm3 (0.0-0.4); Eosinophils % (Auto) 1.8 % (0.0-4.3); Hematocrit 31.5 % (35.5-45.6); Hemoglobin 10.5 gm/dl (11.8-15.2); Lymphocytes # (Auto) 2.6 K/mm3 (1.2-5.4); Lymphocytes % (Auto) 45.6 % (13.4-35.0); Mean Corpuscular HGB Conc 33 % (32-34); Mean Corpuscular Volume 93 fl (84-94); Monocytes # (Auto) 0.5 K/mm3 (0.0-0.8); Monocytes % (Auto) 8.4 % (0.0-7.3); Platelet Count 207 K/mm3 (140-440); Red Blood Count 3.39 M/mm3 (3.65-5.03); Red Cell Distribution Width 14.1 % (13.2-15.2)
[2019-09-24 23:49] LABS: Alanine Aminotransferase 11 units/L (7-56); Albumin 3.9 g/dL (3.9-5); BUN/Creatinine Ratio 22; Blood Urea Nitrogen 28 mg/dL (9-20); Calcium 9.2 mg/dL (8.4-10.2); Hemolysis Index 4
[2019-09-25 02:00] VITALS: BP 168/88
== END 2019-09-25 02:00 | disposition home or self-care (01) ==
LOC: ED 17:19
DX: E11.65 Type 2 diabetes mellitus with hyperglycemia (principal); I12.9 Hypertensive chronic kidney disease with stage 1 through stage 4 chronic kidney disease, or unspecified chronic kidney disease; E11.22 Type 2 diabetes mellitus with diabetic chronic kidney disease; N18.3 Chronic kidney disease, stage 3 (moderate); F17.200 Nicotine dependence, unspecified, uncomplicated; Z90.49 Acquired absence of other specified parts of digestive tract; Z79.899 Other long term (current) drug therapy
CPT/HCPCS: 36415; 80053; 82962; 85025; 96360; 99284; J7030; J1642

== ENCOUNTER 2022-01-10 12:44 | Emergency (ER) | payer MEDICARE ==
[2022-01-10] MEDS ORDERED: ONDANSETRON 4 MG/2 ML INJ IV ONE (14:01)
[2022-01-10] MEDS ORDERED: HYDROmorphone 1 MG/1 ML INJ IV ONE ×2 (14:01→16:16)
[2022-01-10] MEDS ORDERED: cloNIDine 0.2 MG TAB PO ONE (14:02)
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
--- NOTE | 2022-01-10 15:18 | XRay Report ---
EXAMINATION: Right shoulder radiograph, 3 views, 01/10/2022 CLINICAL INFORMATION / INDICATION: Right shoulder pain COMPARISON: None. FINDINGS: There are mild bony degenerative changes of the right shoulder without evidence of acute fr acture or dislocation. IMPRESSION: Mild to moderate bony degenerative changes of the right shoulder. Signer Name: Teresa Washington MD Signed: 01/10/2022 3:13 PM Workstation Name: [email or web address]
[2022-01-10 16:03] LABS: Bilirubin,Urine NEG (Negative); Blood,Urine SM (Negative); Color,Urine Straw (Yellow); Urobilinogen,Urine < 2.0 mg/dL (<2.0)
[2022-01-10 16:04] LABS: Basophils % (Auto) 0.4 % (0.0-1.8); Eosinophils # (Auto) 0.1 K/mm3 (0.0-0.4); Eosinophils % (Auto) 2.5 % (0.0-4.3); Hematocrit 32.9 % (35.5-45.6); Hemoglobin 11.3 gm/dl (11.8-15.2); Lymphocytes # (Auto) 2.2 K/mm3 (1.2-5.4); Lymphocytes % (Auto) 36.4 % (13.4-35.0); Mean Corpuscular HGB Conc 34 % (32-34); Mean Corpuscular Volume 87 fl (84-94); Monocytes # (Auto) 0.6 K/mm3 (0.0-0.8); Monocytes % (Auto) 9.8 % (0.0-7.3); Platelet Count 191 K/mm3 (140-440); Red Blood Count 3.79 M/mm3 (3.65-5.03); Red Cell Distribution Width 15.1 % (13.2-15.2)
[2022-01-10 16:07] LABS: INR 0.87 (0.87-1.13)
[2022-01-10 16:08] LABS: Partial Thromboplastin Time 30.3 Sec. (24.2-36.6)
[2022-01-10 16:09] LABS: Protein,Urine >500 mg/dL (Negative)
[2022-01-10] MEDS ORDERED: KETOROLAC 30 MG/1 ML INJ IV ONE (16:17)
[2022-01-10 16:20] LABS: Creatine Kinase MB 3.3 ng/mL (0.0-4.0)
[2022-01-10 16:21] LABS: Albumin 3.2 g/dL (3.9-5); Calcium 8.4 mg/dL (8.4-10.2)
[2022-01-10] MEDS ORDERED: SODIUM BICARB 8.4% 50 MEQ/50 ML SYRINGE IV ONE (16:39)
[2022-01-10 16:45] LABS: Chol/HDL Ratio 2.03 %
[2022-01-10 21:13] VITALS: BP 127/69
== END 2022-01-10 21:40 | disposition home or self-care (01) ==
LOC: ED 12:44
DX: M54.12 Radiculopathy, cervical region (principal); I10 Essential (primary) hypertension; E11.9 Type 2 diabetes mellitus without complications; N28.9 Disorder of kidney and ureter, unspecified; R56.9 Unspecified convulsions; Z90.49 Acquired absence of other specified parts of digestive tract; Z87.891 Personal history of nicotine dependence
CPT/HCPCS: 36415; 70490; 73030; 80053; 80061; 81001; 82550; 82553; 82805; 84484; 85025; 85610; 85730; 93005; 96374; 96375; 96376; 99285; J1170; J1642; J1885; J2405

== ENCOUNTER 2022-02-20 19:37 | Inpatient (IN) | payer MEDICARE ==
[2022-02-20] MEDS ORDERED: ASPIRIN 325 MG TAB PO ONE (20:31)
[2022-02-20 21:26] LABS: Basophils % (Auto) 0.3 % (0.0-1.8); Eosinophils # (Auto) 0.1 K/mm3 (0.0-0.4); Eosinophils % (Auto) 2.2 % (0.0-4.3); Hematocrit 31.1 % (35.5-45.6); Hemoglobin 10.7 gm/dl (11.8-15.2); Lymphocytes # (Auto) 1.9 K/mm3 (1.2-5.4); Lymphocytes % (Auto) 36.3 % (13.4-35.0); Mean Corpuscular HGB Conc 34 % (32-34); Mean Corpuscular Volume 86 fl (84-94); Monocytes # (Auto) 0.4 K/mm3 (0.0-0.8); Monocytes % (Auto) 6.9 % (0.0-7.3); Platelet Count 156 K/mm3 (140-440); Red Blood Count 3.61 M/mm3 (3.65-5.03); Red Cell Distribution Width 14.4 % (13.2-15.2)
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
[2022-02-20 21:52] LABS: Albumin 3.2 g/dL (3.9-5); Calcium 8.5 mg/dL (8.4-10.2)
[2022-02-20] MEDS ORDERED: NITROGLYCERIN 0.4 MG TAB SUBL SL ONE ×2 (21:57→23:28)
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
[2022-02-20 22:14] LABS: Chol/HDL Ratio 1.89 %
[2022-02-20] MEDS ORDERED: ONDANSETRON 4 MG/2 ML INJ IV ONE (23:57)
[2022-02-20] MEDS ORDERED: HYDROmorphone 1 MG/1 ML INJ IV ONE (23:57)
[2022-02-21] MEDS ORDERED: NITROGLYCERIN 0.4 MG TAB SUBL SL PRN (01:11)
[2022-02-21] MEDS ORDERED: DEXTROSE 50% IN WATER (25GM) 50 ML SYRINGE IV PRN (01:11)
[2022-02-21] MEDS ORDERED: MAGNESIUM HYDROXIDE (MOM) ORAL LIQD UDC PO PRN (01:11)
[2022-02-21] MEDS ORDERED: MORPHINE 4 MG/1 ML INJ IV PRN ×2 (01:11)
[2022-02-21] MEDS ORDERED: ACETAMINOPHEN 325 MG TAB PO PRN ×2 (01:11)
[2022-02-21] MEDS ORDERED: ONDANSETRON 4 MG/2 ML INJ IV PRN (01:11)
[2022-02-21] MEDS ORDERED: traMADol 50 MG TAB PO PRN (01:11)
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
[2022-02-21 01:41] LABS: Amphetamine Screen,Urine PRESUMPTIVE NEGATIVE; Benzodiazepines Screen,Urine PRESUMPTIVE NEGATIVE; Cannabinoid Screen,Urine PRESUMPTIVE NEGATIVE; Cocaine Screen,Urine PRESUMPTIVE NEGATIVE; Methadone Screen,Urine PRESUMPTIVE NEGATIVE; Opiate Screen,Urine PRESUMPTIVE NEGATIVE
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
[2022-02-21] MEDS: INSULIN LISPRO 100 UNIT/ML SUB-Q SCH ×4 (09:16→21:53)
[2022-02-21] MEDS ORDERED: CYCLOBENZAPRINE 10 MG TAB PO PRN (09:25)
[2022-02-21] MEDS ORDERED: hydrALAZINE 20 MG/1 ML INJ IV PRN (09:27)
[2022-02-21] MEDS: SODIUM BICARBONATE 325 MG TAB PO SCH ×2 (09:56→21:54)
[2022-02-21] MEDS ORDERED: amLODIPine 10 MG TAB PO SCH (11:00)
[2022-02-21] MEDS: MORPHINE 2 MG/1 ML INJ IV PRN (11:12)
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
[2022-02-21] MEDS: PANTOPRAZOLE 20 MG TAB PO SCH (13:40)
[2022-02-21] MEDS: LACOSAMIDE 100 MG TAB PO SCH ×2 (13:40→21:54)
[2022-02-21] MEDS: HEPARIN 5,000 UNIT/1 ML VIAL SUB-Q SCH ×2 (13:44→21:53)
[2022-02-21] MEDS ORDERED: LORazepam 2 MG/ML VIAL ONE ×2 (18:01→18:07)
--- NOTE | 2022-02-21 19:05 | Cat Scan Report ---
CT head/brain wo con INDICATION / CLINICAL INFORMATION: 71 years Male; seizure like activity. TECHNIQUE: Routine CT head without contrast. All CT scans at this location are performed using CT dos e reduction for ALARA by means of automated exposure control. COMPARISON: 08/23/2021 FINDINGS: BRAIN / INTRACRANIAL CONTENTS: No acute hemorrhage, mass effect, midline shift, hydrocephalus, or acu te, large territorial infarct. No signs of significant atrophy or chronic infarct. Minimal, nonspecif ic white matter disease suggested. CRANIOCERVICAL JUNCTION: No significant abnormality. ORBITS: No significant abnormality of visualized orbits. SINUSES / MASTOIDS: Visualized paranasal sinuses and mastoid air cells are essentially clear. ADDITIONAL FINDINGS: None. IMPRESSION: 1. No focal mass, hemorrhage, hydrocephalus, or acute, large territorial infarct. Signer Name: Palomo Hutchison MD, III Signed: 02/21/2022 7:00 PM Workstation Name: [id number]
[2022-02-21] MEDS: traZODone 100 MG TAB PO SCH (21:53)
[2022-02-21] MEDS: levETIRAcetam 500 MG in DEXTROSE 5% IN WATER 100 ML IV SCH (21:54)
[2022-02-22 06:00] LABS: Basophils % (Auto) 0.2 % (0.0-1.8); Eosinophils # (Auto) 0.2 K/mm3 (0.0-0.4); Eosinophils % (Auto) 2.3 % (0.0-4.3); Hematocrit 32.9 % (35.5-45.6); Lymphocytes # (Auto) 1.6 K/mm3 (1.2-5.4); Lymphocytes % (Auto) 24.5 % (13.4-35.0); Mean Corpuscular HGB Conc 33 % (32-34); Mean Corpuscular Volume 86 fl (84-94); Monocytes # (Auto) 0.5 K/mm3 (0.0-0.8); Platelet Count 164 K/mm3 (140-440); Red Blood Count 3.82 M/mm3 (3.65-5.03); Red Cell Distribution Width 14.4 % (13.2-15.2)
[2022-02-22] MEDS: HEPARIN 5,000 UNIT/1 ML VIAL SUB-Q SCH ×3 (06:03→21:45)
[2022-02-22 06:18] LABS: Calcium 8.5 mg/dL (8.4-10.2)
[2022-02-22] MEDS: INSULIN LISPRO 100 UNIT/ML SUB-Q SCH ×4 (07:49→22:01)
[2022-02-22] MEDS: PANTOPRAZOLE 20 MG TAB PO SCH (07:52)
[2022-02-22] MEDS: REGADENOSON 0.4 MG/5 ML INJ IV ONE ×2 (09:45→11:22)
[2022-02-22] MEDS: SODIUM BICARBONATE 325 MG TAB PO SCH ×2 (09:45→21:45)
[2022-02-22] MEDS: LACOSAMIDE 100 MG TAB PO SCH ×2 (09:45→21:45)
--- NOTE | 2022-02-22 11:42 | Progress Note ---
Subjective Date of service: 02/22/22 Principal diagnosis: kathy Interval history: KATHY on stage 4/5 CKD Progression of renal failure over time,? Acute component, There is no urgent or emergent indication for renal placement therapy at this time patiently monitor, obtain renal related labs, if renal failure fails to respond consider access planning in near future, And in January it was 3.6, 1.1 in 2019 and 1.2 in 2014 Creatinine was noted to be 3.1 in August 2021 History of proteinuria low-grade, will need follow-up on this, Admitted here with chest pain, chronic kidney disease patients have higher prevalence of coronary artery disease and hence this must be pursued with a cardiac work-up #History of hepatitis C that has been treated #Legally blind #Longstanding history of hypertension diabetes chronic kidney disease, now being admitted here with worsening renal failure creatinine was 3.1 in August 2021 If you have any question in regards to this patient renal care please feel free to contact me at [phone] Source of information: From patient/as well as old records that were also reviewed Subjective: 71-year-old male who is being admitted here with chest pain, retrosternal radiating to right neck and right shoulder, work-up in progress, known history of chronic kidney disease but has never followed up in the office current creatinine is 3.9 In the previous admission in August 2021 patient was noted to have low-grade proteinuria 696 mg per DL chronic hypocalcemia, was seen by my partner in August 2021 Patient has been established with our practice and was last seen in 2006 but never kept follow-up appointment at that time the creatinine was running around 1.8 creatinine clearance by 24-hour urine collection was 88 cc/min,, I did see this patient, in 2006 but never kept follow-up appointment, patient does have history of longstanding hypertension, diabetes at that time he did not have any evidence of proteinuria, Patient has also known history of hepatitis C which was treated by Dr. Anna no acute issues today labs and chart reviewed Past medical history: Stage II chronic kidney disease: 2006 creatinine was 1.8 Diabetes mellitus type 2 Hypertension Hepatitis C treated by Dr. Anna Edema Poor compliance Current allergies: Reviewed from the current chart Social history: Reviewed from the current chart Family history: Reviewed from the current chart Review of system: Positive for chest pain, All other review of systems negative Physical examination Vitals: Reviewed General: No acute distress HEENT: Oral mucosa moist no pallor or icterus Neck: Supple without any JVD thyromegaly or nodular mass Chest: Clear to auscultation Heart: Regular rate and rhythm S1-S2 heard no S3-S4 Abdomen: Soft nontender, bowel sounds present no renal bruit no suprapubic masses no CVA tenderness noted Extremity: Minimal edema dry skin no peripheral cyanosis Endocrine: Thyroid not enlarged Psychiatric: No agitation and aggression noted Musculoskeletal: No joint effusion noted Labs and x-rays: Reviewed from this admission Objective - Vital Signs Vital signs: Vital Signs - 12hr 02/22/22 02/22/22 02/22/22 02:00 03:28 07:36 Temperature 98.5 F 98.9 F Pulse Rate 77 81 84 Respiratory 16 18 Rate Blood Pressure 161/89 163/80 O2 Sat by Pulse 94 93 Oximetry 02/22/22 10:00 Temperature Pulse Rate Respiratory 18 Rate Blood Pressure O2 Sat by Pulse 100 Oximetry - Lab 02/22/22 04:00 02/22/22 04:00 Most recent lab results Calcium 8.5 mg/dL (8.4-10.2) 02/22/22 04:00 Medications & Allergies - Medications Allergies/Adverse Reactions: Allergies No Known Allergies Allergy (Verified 02/20/22 21:19) Home Medications: Home Medications Medication Instructions Recorded Confirmed Last Taken Type traZODone [Desyrel] 100 mg PO QHS 09/20/15 02/21/22 09/19/15 History raNITIdine HCL [Acid Control] 150 mg PO BID 11/16/19 02/21/22 Unknown History Novolin 70-30 Flexpen 16 unit SQ BID 08/24/21 02/21/22 Unknown History Pregabalin 100 mg PO BID 08/24/21 02/21/22 Unknown History Prilosec 20 mg PO DAILY 08/24/21 02/21/22 Unknown History Lacosamide [Vimpat] 100 mg PO Q12HR 30 Days #60 tablet 08/28/21 02/21/22 Unknown Rx Potassium Chloride [K-Dur] 20 meq PO QDAY 30 Days #30 tablet 08/28/21 02/21/22 Unknown Rx Rosuvastatin Calcium [Crestor] 20 mg PO HS 30 Days #30 tab 08/28/21 02/21/22 Unknown Rx Sodium Bicarbonate 325 mg PO BID 30 Days #30 tablet 08/28/21 02/21/22 Unknown Rx amLODIPine 10 mg PO DAILY 30 Days #30 tab 08/28/21 02/21/22 Unknown Rx Cyclobenzaprine [Flexeril] 10 mg PO TID PRN #14 01/10/22 02/21/22 Unknown Rx HYDROcodone/APAP 5-325 [Rover 1 - 2 each PO Q6HR PRN #14 tablet 01/10/22 02/21/22 Unknown Rx 5/325] Active Medications: Generic Name Dose Route Start Last Admin Trade Name Freq PRN Reason Stop Dose Admin Acetaminophen 650 mg 02/21/22 01:11 Acetaminophen 325 Mg Tab PO Q4H PRN Pain MILD(1-3)/Fever >100.5/HARRISON Cyclobenzaprine HCl 10 mg 02/21/22 09:25 Cyclobenzaprine 10 Mg Tab PO TID PRN Muscle Spasm Dextrose 50 ml 02/21/22 01:11 Dextrose 50% In Water (25gm) 50 Ml Syringe IV Q30MIN PRN Hypoglycemia Protocol Heparin Sodium (Porcine) 5,000 unit 02/21/22 14:00 02/22/22 06:03 Heparin 5,000 Unit/1 Ml Vial SUB-Q 5,000 unit Q8HR DAVID Administration Hydralazine HCl 10 mg 02/21/22 09:27 02/21/22 16:11 Hydralazine 20 Mg/1 Ml Inj IV 10 mg Q4HR PRN Administration Hypertension Levetiracetam 500 mg/ Dextrose 105 mls @ 400 mls/hr 02/21/22 22:00 02/21/22 21:54 IV 400 mls/hr Q12HR DAVID Administration Insulin Human Lispro 0 unit 02/21/22 07:30 02/22/22 07:49 Insulin Lispro 100 Unit/Ml SUB-Q 2 unit ACHS DAVID Administration Protocol Labetalol HCl 200 mg 02/21/22 14:00 02/22/22 07:51 Labetalol 200 Mg Tab PO 200 mg TID DAVID Administration Lacosamide 100 mg 02/21/22 12:00 02/22/22 09:45 Lacosamide 100 Mg Tab PO 100 mg Q12HR DAVID Administration Magnesium Hydroxide 30 ml 02/21/22 01:11 Magnesium Hydroxide (Mom) Oral Liqd Udc PO Q4H PRN Constipation Morphine Sulfate 2 mg 02/21/22 01:11 02/21/22 11:12 Morphine 2 Mg/1 Ml Inj IV 2 mg Q4H PRN Administration Pain, Moderate (4-6) Morphine Sulfate 4 mg 02/21/22 01:11 Morphine 4 Mg/1 Ml Inj IV Q4H PRN Pain , Severe (7-10) Morphine Sulfate 2 mg 02/21/22 01:11 Morphine 4 Mg/1 Ml Inj IV Q5MIN PRN Chest Pain unrelieved by NTG Nifedipine 30 mg 02/22/22 10:00 Nifedipine Xl 30 Mg Tab PO Q12HR DAVID Nitroglycerin 0.4 mg 02/21/22 01:11 Nitroglycerin 0.4 Mg Tab Subl SL Q5M PRN Chest Pain Ondansetron HCl 4 mg 02/21/22 01:11 Ondansetron 4 Mg/2 Ml Inj IV Q8H PRN Nausea And Vomiting Pantoprazole Sodium 20 mg 02/21/22 12:00 02/22/22 07:52 Pantoprazole 20 Mg Tab PO 20 mg QDAC DAVID Administration Sodium Bicarbonate 325 mg 02/21/22 10:00 02/22/22 09:45 Sodium Bicarbonate 325 Mg Tab PO 325 mg BID DAVID Administration Sodium Chloride 10 ml 02/21/22 10:00 02/22/22 09:47 Sodium Chloride 0.9% 10 Ml Flush Syringe IV 10 ml BID DAVID Administration Sodium Chloride 10 ml 02/21/22 01:11 Sodium Chloride 0.9% 10 Ml Flush Syringe IV PRN PRN LINE FLUSH Tramadol HCl 50 mg 02/21/22 01:11 02/21/22 09:27 Tramadol 50 Mg Tab PO 50 mg Q6H PRN Administration Pain, Moderate (4-6) Trazodone HCl 100 mg 02/21/22 22:00 02/21/22 21:53 Trazodone 100 Mg Tab PO Not Given QHS DAVID
[2022-02-22] MEDS: NIFEdipine XL 30 MG TAB PO SCH ×2 (12:38→21:47)
[2022-02-22] MEDS: levETIRAcetam 500 MG in DEXTROSE 5% IN WATER 100 ML IV SCH ×2 (12:38→22:05)
--- NOTE | 2022-02-22 12:49 | Progress Note ---
Assessment and Plan - Patient Problems (1) Chest pain Current Visit: Yes Status: Acute Plan to address problem: Patient has completed a Lexiscan thallium stress test as ordered, results are pending. Subjective Date of service: 02/22/22 Principal diagnosis: Chest pain Interval history: Patient is comfortable, no new cardiac complaints. He completed a Lexiscan thallium stress test, results are pending. Objective Vital Signs Temp Pulse Resp BP BP Pulse Ox 02/22/22 12:26 97.6 F 79 18 158/81 98 02/22/22 11:18 132/68 02/22/22 11:15 128/63 02/22/22 11:14 127/63 02/22/22 11:12 118/56 02/22/22 11:11 121/58 02/22/22 11:09 138/56 02/22/22 11:08 153/74 02/22/22 10:34 160/75 02/22/22 10:00 18 100 02/22/22 07:36 98.9 F 84 18 163/80 93 02/22/22 03:28 98.5 F 81 16 161/89 94 02/22/22 02:00 77 02/21/22 23:16 98.4 F 82 18 172/87 94 02/21/22 22:00 18 100 02/21/22 21:53 79 164/86 02/21/22 19:29 98.3 F 79 17 164/86 95 02/21/22 18:19 88 168/90 02/21/22 18:12 84 171/88 02/21/22 18:07 84 157/85 02/21/22 17:51 77 142/74 02/21/22 16:11 75 181/84 02/21/22 15:26 97.8 F 70 16 181/84 96 02/21/22 14:53 69 142/85 02/21/22 13:40 72 202/93 - Physical Examination General: No Apparent Distress HEENT: Positive: PERRL Neck: Positive: neck supple Cardiac: Positive: Reg Rate and Rhythm Lungs: Positive: Decreased Breath Sounds Neuro: Positive: Grossly Intact Abdomen: Positive: Soft Skin: Positive: Clear Extremities: Absent: edema - Labs and Meds CBC 02/22/22 Range/Units 04:00 WBC 6.7 (4.5-11.0) K/mm3 RBC 3.82 (3.65-5.03) M/mm3 Hgb 11.0 L (11.8-15.2) gm/dl Hct 32.9 L (35.5-45.6) % Plt Count 164 (140-440) K/mm3 Lymph # (Auto) 1.6 (1.2-5.4) K/mm3 [place] # (Auto) 0.5 (0.0-0.8) K/mm3 Eos # (Auto) 0.2 (0.0-0.4) K/mm3 Baso # (Auto) 0.0 (0.0-0.1) K/mm3 Comprehensive Metabolic Panel 02/22/22 Range/Units 04:00 Sodium 142 (137-145) mmol/L Potassium 3.7 (3.6-5.0) mmol/L Chloride 105.7 (98-107) mmol/L Carbon Dioxide 22 (22-30) mmol/L BUN 32 H (9-20) mg/dL Creatinine 3.9 H (0.8-1.3) mg/dL Glucose 214 H (75-100) mg/dL Calcium 8.5 (8.4-10.2) mg/dL
--- NOTE | 2022-02-22 12:56 | Nuclear Medicine Report ---
APPROVED REPORT Exam: Nuclear Stress Test Indication: Chest pain [facility] Ht: 5 ft 4 in Wt: 160 lbs BSA: 1.78 m2 HR: 74 bpmBP: 160/75 mmHgBMI: 27.46 Rhythm: Sinus Rhythm Stress Test Details Stress Test: Pharmacologic stress testing performed using 0.4 mg of regadenoson per 5 mL given IV over 10 seconds. Reason for pharmacologic stress test: physical limitation. HR Resting HR: 72 bpm Max HR Achieved: 84 bpm Max Heart Rate (APMHR): 148 bpm Target HR (85% APMHR): 125 bpm % of APMHR: 56 Recovery HR: 81 bpm HR response to stress: Normal HR response to stress BP Resting BP: 118/56 mmHg Max BP: 160/75 mmHg Recovery BP: 121/58 mmHg BP response to stress: Normal blood pressure response to stress. ECG Resting ECG: Sinus Rhythm Stress ECG: Sinus Rhythm ST Change: None Arrhythmia: None Recovery ECG: Sinus Rhythm Recovery ST Change: None Recovery Arrhythmia: None Clinical Reason for Termination: Completed protocol Stress Symptoms: None Stress ECG Conclusion No chest pain, no ST changes of ischemia with pharmacologic stress. Myocardial perfusion images are pending. NM EXAM: Myocardial Perfusion REST/STRESS Imaging Protocol: Rest Tc-99m/Stress Tc-99m 1 day Resting Data Rest SPECT myocardial perfusion imaging was performed in supine position 45 minutes following the intravenous injection of 10 mCi of Tc-99m Myoview. Time of rest injection: 0715 Date: 02/22/2022 Pharmacologic Stress Pharmacologic stress test was performed by injecting Regadenoson 0.4 mg IV push followed by the intravenous injection of 28 mCi of Tc-99m Myoview. Time of stress injection: 1115 Date: 02/22/2022 Gated Stress SPECT was performed 45 minutes after stress injection. The images were gated to evaluate regional wall motion and calculate left ventricular ejection fraction. Study Data TID = 1.06. Perfusion Wall Motion Normal left ventricular systolic function, ejection fraction 57%. Nuclear Conclusion ECG Findings: negative for ischemia Clinical Findings: negative for ischemia Nuclear Findings: negative for ischemia Left Ventricular Function: normal Risk Study: low Normal rest and stress myocardial perfusion images. Normal left ventricular systolic function, ejection fraction 57%. Normal study. Conclusion No chest pain, no ST changes of ischemia with pharmacologic stress. Myocardial perfusion images are pending.
[2022-02-22] MEDS: MORPHINE 2 MG/1 ML INJ IV PRN ×2 (13:03→21:46)
--- NOTE | 2022-02-22 16:35 | Progress Note ---
Assessment and Plan Assessment and plan: (1) Chest pain Patient placed on telemetry.. We will check serial cardiac enzymes. Patient placed on daily aspirin, sublingual nitroglycerin and IV morphine as needed for chest pain. We will request cardiology evaluation. (2) Acute on chronic renal insufficiency Will continue to monitor BUN and creatinine. Will request nephrology evaluation recommendation. (3) Hypertension We will resume routine home medications and monitor vital signs closely. (4) IDDM (insulin dependent diabetes mellitus) Patient placed on sliding scale insulin. We will monitor Accu-Cheks. (5) Seizure disorder Continue routine home medications once reconciled. Hospitalist Physical - Physical exam Narrative exam: GENERAL: Well-developed well-nourished. Sitting on the side of the bed in no acute distress. HEENT: Normocephalic. Atraumatic. NECK: Supple. CHEST/LUNGS: CTAB on room air HEART/CARDIOVASCULAR: RRR. No murmur, rubs or gallops appreciated. ABDOMEN: +BS. NT/ND. SKIN: No rashes noted. NEURO: No focal motor deficit. Follows all commands and is ambulatory. MUSCULOSKELETAL: No joint effusion EXTREMITIES: No cyanosis, cubbing or edema. PSYCH: Cooperative. - Constitutional Vitals: Temp Pulse Resp BP Pulse Ox 97.6 F 79 18 158/81 98 02/22/22 12:26 02/22/22 12:26 02/22/22 12:26 02/22/22 12:26 02/22/22 12:26 General appearance: Present: no acute distress, well-nourished HEART Score - HEART Score EKG: Non-specific Age: > 65 Risk factors: > 3 risk factors or hx of atherosclerotic disease Troponin: Troponin T 0.043 ng/mL (0.00-0.029) H 02/22/22 04:00 Troponin: < normal limit Results - Labs CBC & Chem 7: 02/22/22 04:00 02/22/22 04:00 Labs: Laboratory Last Values WBC 6.7 K/mm3 (4.5-11.0) 02/22/22 04:00 RBC 3.82 M/mm3 (3.65-5.03) 02/22/22 04:00 Hgb 11.0 gm/dl (11.8-15.2) L 02/22/22 04:00 Hct 32.9 % (35.5-45.6) L 02/22/22 04:00 MCV 86 fl (84-94) 02/22/22 04:00 MCH 29 pg (28-32) 02/22/22 04:00 MCHC 33 % (32-34) 02/22/22 04:00 RDW 14.4 % (13.2-15.2) 02/22/22 04:00 Plt Count 164 K/mm3 (140-440) 02/22/22 04:00 Lymph % (Auto) 24.5 % (13.4-35.0) 02/22/22 04:00 [place] % (Auto) 8.0 % (0.0-7.3) H 02/22/22 04:00 Eos % (Auto) 2.3 % (0.0-4.3) 02/22/22 04:00 Baso % (Auto) 0.2 % (0.0-1.8) 02/22/22 04:00 Lymph # (Auto) 1.6 K/mm3 (1.2-5.4) 02/22/22 04:00 [place] # (Auto) 0.5 K/mm3 (0.0-0.8) 02/22/22 04:00 Eos # (Auto) 0.2 K/mm3 (0.0-0.4) 02/22/22 04:00 Baso # (Auto) 0.0 K/mm3 (0.0-0.1) 02/22/22 04:00 Seg Neutrophils % 65.0 % (40.0-70.0) 02/22/22 04:00 Seg Neutrophils # 4.3 K/mm3 (1.8-7.7) 02/22/22 04:00 Sodium 142 mmol/L (137-145) 02/22/22 04:00 Potassium 3.7 mmol/L (3.6-5.0) 02/22/22 04:00 Chloride 105.7 mmol/L (98-107) 02/22/22 04:00 Carbon Dioxide 22 mmol/L (22-30) 02/22/22 04:00 Anion Gap 18 mmol/L 02/22/22 04:00 BUN 32 mg/dL (9-20) H 02/22/22 04:00 Creatinine 3.9 mg/dL (0.8-1.3) H 02/22/22 04:00 Estimated GFR 18 ml/min 02/22/22 04:00 BUN/Creatinine Ratio 8 % 02/22/22 04:00 Glucose 214 mg/dL (75-100) H 02/22/22 04:00 POC Glucose 176 mg/dL (70-105) H 02/22/22 07:35 Calcium 8.5 mg/dL (8.4-10.2) 02/22/22 04:00 Total Bilirubin 0.20 mg/dL (0.1-1.2) 02/20/22 20:31 AST 32 units/L (5-40) 02/20/22 20:31 ALT 22 units/L (7-56) 02/20/22 20:31 Alkaline Phosphatase 167 units/L (35-129) H 02/20/22 20:31 Troponin T 0.043 ng/mL (0.00-0.029) H 02/22/22 04:00 Total Protein 6.6 g/dL (6.3-8.2) 02/20/22 20:31 Albumin 3.2 g/dL (3.9-5) L 02/20/22 20:31 Albumin/Globulin Ratio 0.9 % 02/20/22 20:31 Triglycerides 70 mg/dL (2-149) 02/20/22 20:31 Cholesterol 104 mg/dL (50-199) 02/20/22 20:31 LDL Cholesterol Direct 38 mg/dL (50-130) L 02/20/22 20:31 HDL Cholesterol 55 mg/dL (40-59) 02/20/22 20:31 Cholesterol/HDL Ratio 1.89 % 02/20/22 20:31 Nasal Screen MRSA (PCR) Negative (Negative) 02/21/22 11:05 Urine Opiates Screen Presumptive negative 02/20/22 Unknown Urine Methadone Screen Presumptive negative 02/20/22 Unknown Ur Barbiturates Screen Presumptive negative 02/20/22 Unknown Ur Phencyclidine Scrn Presumptive negative 02/20/22 Unknown Ur Amphetamines Screen Presumptive negative 02/20/22 Unknown U Benzodiazepines Scrn Presumptive negative 02/20/22 Unknown Urine Cocaine Screen Presumptive negative 02/20/22 Unknown U Marijuana (THC) Screen Presumptive negative 02/20/22 Unknown Drugs of Abuse Note Disclamer 02/20/22 Unknown Johnson/IV: Voiding Method Urinal Active Medications - Current Medications Current Medications: Generic Name Dose Route Start Last Admin Trade Name Freq PRN Reason Stop Dose Admin Acetaminophen 650 mg 02/21/22 01:11 Acetaminophen 325 Mg Tab PO Q4H PRN Pain MILD(1-3)/Fever >100.5/HARRISON Cyclobenzaprine HCl 10 mg 02/21/22 09:25 Cyclobenzaprine 10 Mg Tab PO TID PRN Muscle Spasm Dextrose 50 ml 02/21/22 01:11 Dextrose 50% In Water (25gm) 50 Ml Syringe IV Q30MIN PRN Hypoglycemia Protocol Heparin Sodium (Porcine) 5,000 unit 02/21/22 14:00 02/22/22 13:14 Heparin 5,000 Unit/1 Ml Vial SUB-Q 5,000 unit Q8HR DAVID Administration Hydralazine HCl 10 mg 02/21/22 09:27 02/21/22 16:11 Hydralazine 20 Mg/1 Ml Inj IV 10 mg Q4HR PRN Administration Hypertension Levetiracetam 500 mg/ Dextrose 105 mls @ 400 mls/hr 02/21/22 22:00 02/22/22 12:38 IV 400 mls/hr Q12HR DAVID Administration Insulin Human Lispro 0 unit 02/21/22 07:30 02/22/22 12:39 Insulin Lispro 100 Unit/Ml SUB-Q 2 unit ACHS DAVID Administration Protocol Labetalol HCl 200 mg 02/21/22 14:00 02/22/22 13:14 Labetalol 200 Mg Tab PO 200 mg TID DAVID Administration Lacosamide 100 mg 02/21/22 12:00 02/22/22 09:45 Lacosamide 100 Mg Tab PO 100 mg Q12HR DAVID Administration Magnesium Hydroxide 30 ml 02/21/22 01:11 Magnesium Hydroxide (Mom) Oral Liqd Udc PO Q4H PRN Constipation Morphine Sulfate 2 mg 02/21/22 01:11 02/22/22 13:03 Morphine 2 Mg/1 Ml Inj IV 2 mg Q4H PRN Administration Pain, Moderate (4-6) Morphine Sulfate 4 mg 02/21/22 01:11 Morphine 4 Mg/1 Ml Inj IV Q4H PRN Pain , Severe (7-10) Morphine Sulfate 2 mg 02/21/22 01:11 Morphine 4 Mg/1 Ml Inj IV Q5MIN PRN Chest Pain unrelieved by NTG Nifedipine 30 mg 02/22/22 10:00 02/22/22 12:38 Nifedipine Xl 30 Mg Tab PO 30 mg Q12HR DAVID Administration Nitroglycerin 0.4 mg 02/21/22 01:11 Nitroglycerin 0.4 Mg Tab Subl SL Q5M PRN Chest Pain Ondansetron HCl 4 mg 02/21/22 01:11 Ondansetron 4 Mg/2 Ml Inj IV Q8H PRN Nausea And Vomiting Pantoprazole Sodium 20 mg 02/21/22 12:00 02/22/22 07:52 Pantoprazole 20 Mg Tab PO 20 mg QDAC DAVID Administration Sodium Bicarbonate 325 mg 02/21/22 10:00 02/22/22 09:45 Sodium Bicarbonate 325 Mg Tab PO 325 mg BID DAVID Administration Sodium Chloride 10 ml 02/21/22 10:00 02/22/22 09:47 Sodium Chloride 0.9% 10 Ml Flush Syringe IV 10 ml BID DAVID Administration Sodium Chloride 10 ml 02/21/22 01:11 Sodium Chloride 0.9% 10 Ml Flush Syringe IV PRN PRN LINE FLUSH Tramadol HCl 50 mg 02/21/22 01:11 02/21/22 09:27 Tramadol 50 Mg Tab PO 50 mg Q6H PRN Administration Pain, Moderate (4-6) Trazodone HCl 100 mg 02/21/22 22:00 02/21/22 21:53 Trazodone 100 Mg Tab PO Not Given QHS [facility] Nutrition/Malnutrition Assess - Dietary Evaluation Nutrition/Malnutrition Findings: Nutrition Notes Start: 02/21/22 14:25 Freq: Status: Active Protocol: Document 02/21/22 14:25 MATTHIAS (Rec: 02/21/22 14:38 MATTHIAS [id number]) Nutrition Notes Need for Assessment generated from: MD Order,Education Initial or Follow up Brief Note Current Diagnosis CKD(stage I-IV),Diabetes, Hypertension Other Pertinent Diagnosis Hepatitis C, Seizures, Chest Pain. Current Diet Cardiac/Consistent Carbohydrates Diet (since L ). Height 5 ft 7 in Weight 75.296 kg [place] Body Weight (kg) 67.27 BMI 25.9 Intake Prior to Admission Good Weight change and time frame Pt states having, unintentionally, loss between 2 and 13 lb recently. Weight Status Overweight Subjective/Other Information RD consult for nutrition education assessment. Pt's PO intake of meals has been Good (100%), according to ADL notes. Pt is on Room Air, O2 saturation @ 100%, according to Physical Assessment History notes. Pt still in critical condition , not a candidate for Nutrition Education at the time, will assess feasibility on F/U. Percent of energy/protein needs met: Prescribed Cardiac/Consistent Carbohydrates Diet provides for energy/protein needs (1, 977 Kcal/86 g) during LOS. Nutrition Intervention Follow-Up By: 02/26/22 Additional Comments Nutrition education will be provided on F/U, if feasible. Continue monitoring food tolerance, %PO intake of meals , and BM.
[2022-02-22] MEDS: traZODone 100 MG TAB PO SCH (21:47)
[2022-02-23] MEDS: HEPARIN 5,000 UNIT/1 ML VIAL SUB-Q SCH ×3 (05:45→22:04)
[2022-02-23 07:32] LABS: Calcium 8.1 mg/dL (8.4-10.2)
[2022-02-23] MEDS: INSULIN LISPRO 100 UNIT/ML SUB-Q SCH ×2 (08:57→13:06)
[2022-02-23] MEDS: MORPHINE 2 MG/1 ML INJ IV PRN ×2 (08:57→18:56)
[2022-02-23] MEDS: PANTOPRAZOLE 20 MG TAB PO SCH (08:57)
--- NOTE | 2022-02-23 09:47 | Progress Note ---
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 cr is worse today, follow up crcl and daily lytes avoid nephrotoxins There is no urgent or emergent indication for renal placement therapy at this time patiently monitor, obtain renal related labs, if renal failure fails to respond consider access planning in near future, cr was in 3.6, 1.1 in 2019 and 1.2 in 2014 Creatinine was noted to be 3.1 in August 2021, so likely progression of adv CKD History of proteinuria low-grade, will need follow-up on this, Admitted here with chest pain, chronic kidney disease patients have higher prevalence of coronary artery disease and hence this must be pursued with a cardiac work-up #History of hepatitis C that has been treated #Legally blind #Longstanding history of hypertension diabetes chronic kidney disease, now being admitted here with worsening renal failure creatinine was 3.1 in August 2021 If you have any question in regards to this patient renal care please feel free to contact me at [phone] Source of information: From patient/as well as old records that were also reviewed Subjective: 71-year-old male who is being admitted here with chest pain, retrosternal radiating to right neck and right shoulder, work-up in progress, known history of chronic kidney disease but has never followed up in the office current creatinine is 3.9 no acute issues today labs and chart reviewed Review of system: Positive for chest pain, All other review of systems negative Physical examination Vitals: Reviewed General: No acute distress HEENT: Oral mucosa moist no pallor or icterus Neck: Supple without any JVD thyromegaly or nodular mass Chest: Clear to auscultation Heart: Regular rate and rhythm S1-S2 heard no S3-S4 Abdomen: Soft nontender, bowel sounds present no renal bruit no suprapubic masses no CVA tenderness noted Extremity: Minimal edema dry skin no peripheral cyanosis Endocrine: Thyroid not enlarged Psychiatric: No agitation and aggression noted Musculoskeletal: No joint effusion noted Labs and x-rays: Reviewed from this admission Objective - Vital Signs Vital signs: Vital Signs - 12hr 02/22/22 02/22/22 02/23/22 22:46 22:48 03:26 Temperature 98.8 F 98.5 F Pulse Rate 72 72 70 Respiratory 16 16 Rate Blood Pressure 122/59 118/61 O2 Sat by Pulse 95 95 Oximetry 02/23/22 07:59 Temperature 98.4 F Pulse Rate 74 Respiratory 16 Rate Blood Pressure 141/72 O2 Sat by Pulse 97 Oximetry - Lab 02/22/22 04:00 02/23/22 06:30 Most recent lab results Calcium 8.1 mg/dL (8.4-10.2) L 02/23/22 06:30 Medications & Allergies - Medications Allergies/Adverse Reactions: Allergies No Known Allergies Allergy (Verified 02/20/22 21:19) Home Medications: Home Medications Medication Instructions Recorded Confirmed Last Taken Type traZODone [Desyrel] 100 mg PO QHS 09/20/15 02/21/22 09/19/15 History raNITIdine HCL [Acid Control] 150 mg PO BID 11/16/19 02/21/22 Unknown History Novolin 70-30 Flexpen 16 unit SQ BID 08/24/21 02/21/22 Unknown History Pregabalin 100 mg PO BID 08/24/21 02/21/22 Unknown History Prilosec 20 mg PO DAILY 08/24/21 02/21/22 Unknown History Lacosamide [Vimpat] 100 mg PO Q12HR 30 Days #60 tablet 08/28/21 02/21/22 Unknown Rx Potassium Chloride [K-Dur] 20 meq PO QDAY 30 Days #30 tablet 08/28/21 02/21/22 Unknown Rx Rosuvastatin Calcium [Crestor] 20 mg PO HS 30 Days #30 tab 08/28/21 02/21/22 Unknown Rx Sodium Bicarbonate 325 mg PO BID 30 Days #30 tablet 08/28/21 02/21/22 Unknown Rx amLODIPine 10 mg PO DAILY 30 Days #30 tab 08/28/21 02/21/22 Unknown Rx Cyclobenzaprine [Flexeril] 10 mg PO TID PRN #14 01/10/22 02/21/22 Unknown Rx HYDROcodone/APAP 5-325 [Piffard 1 - 2 each PO Q6HR PRN #14 tablet 01/10/22 02/21/22 Unknown Rx 5/325] Active Medications: Generic Name Dose Route Start Last Admin Trade Name Freq PRN Reason Stop Dose Admin Acetaminophen 650 mg 02/21/22 01:11 Acetaminophen 325 Mg Tab PO Q4H PRN Pain MILD(1-3)/Fever >100.5/HARRISON Cyclobenzaprine HCl 10 mg 02/21/22 09:25 Cyclobenzaprine 10 Mg Tab PO TID PRN Muscle Spasm Dextrose 50 ml 02/21/22 01:11 Dextrose 50% In Water (25gm) 50 Ml Syringe IV Q30MIN PRN Hypoglycemia Protocol Heparin Sodium (Porcine) 5,000 unit 02/21/22 14:00 02/23/22 05:45 Heparin 5,000 Unit/1 Ml Vial SUB-Q 5,000 unit Q8HR DAVID Administration Hydralazine HCl 10 mg 02/21/22 09:27 02/21/22 16:11 Hydralazine 20 Mg/1 Ml Inj IV 10 mg Q4HR PRN Administration Hypertension Insulin Human Lispro 0 unit 02/21/22 07:30 02/23/22 08:57 Insulin Lispro 100 Unit/Ml SUB-Q 3 unit ACHS DAVID Administration Protocol Labetalol HCl 200 mg 02/21/22 14:00 02/23/22 08:56 Labetalol 200 Mg Tab PO 200 mg TID DAVID Administration Lacosamide 100 mg 02/21/22 12:00 02/22/22 21:45 Lacosamide 100 Mg Tab PO 100 mg Q12HR DAVID Administration Levetiracetam 500 mg 02/23/22 10:00 Levetiracetam 500 Mg Tab PO BID DAVID Magnesium Hydroxide 30 ml 02/21/22 01:11 Magnesium Hydroxide (Mom) Oral Liqd Udc PO Q4H PRN Constipation Morphine Sulfate 2 mg 02/21/22 01:11 02/23/22 08:57 Morphine 2 Mg/1 Ml Inj IV 2 mg Q4H PRN Administration Pain, Moderate (4-6) Morphine Sulfate 4 mg 02/21/22 01:11 Morphine 4 Mg/1 Ml Inj IV Q4H PRN Pain , Severe (7-10) Morphine Sulfate 2 mg 02/21/22 01:11 Morphine 4 Mg/1 Ml Inj IV Q5MIN PRN Chest Pain unrelieved by NTG Nifedipine 30 mg 02/22/22 10:00 02/22/22 21:47 Nifedipine Xl 30 Mg Tab PO Not Given Q12HR DAVID Nitroglycerin 0.4 mg 02/21/22 01:11 Nitroglycerin 0.4 Mg Tab Subl SL Q5M PRN Chest Pain Ondansetron HCl 4 mg 02/21/22 01:11 Ondansetron 4 Mg/2 Ml Inj IV Q8H PRN Nausea And Vomiting Pantoprazole Sodium 20 mg 02/21/22 12:00 02/23/22 08:57 Pantoprazole 20 Mg Tab PO 20 mg QDAC DAVID Administration Sodium Bicarbonate 325 mg 02/21/22 10:00 02/22/22 21:45 Sodium Bicarbonate 325 Mg Tab PO 325 mg BID DAVID Administration Sodium Chloride 10 ml 02/21/22 10:00 02/22/22 21:45 Sodium Chloride 0.9% 10 Ml Flush Syringe IV 10 ml BID DAVID Administration Sodium Chloride 10 ml 02/21/22 01:11 Sodium Chloride 0.9% 10 Ml Flush Syringe IV PRN PRN LINE FLUSH Tramadol HCl 50 mg 02/21/22 01:11 02/21/22 09:27 Tramadol 50 Mg Tab PO 50 mg Q6H PRN Administration Pain, Moderate (4-6) Trazodone HCl 100 mg 02/21/22 22:00 02/22/22 21:47 Trazodone 100 Mg Tab PO Not Given QHS DAVID
[2022-02-23] MEDS: SODIUM BICARBONATE 325 MG TAB PO SCH ×2 (10:13→22:04)
[2022-02-23] MEDS: levETIRAcetam 500 MG TAB PO SCH ×2 (10:13→22:04)
[2022-02-23] MEDS: LACOSAMIDE 100 MG TAB PO SCH ×2 (10:13→22:04)
[2022-02-23] MEDS: NIFEdipine XL 30 MG TAB PO SCH ×2 (10:13→22:40)
[2022-02-23 14:09] LABS: Creatinine,Urine 239.3 mg/dL (0.1-20.0)
[2022-02-23 14:23] LABS: Protein/Creatinine Ratio,Urine 3.59
--- NOTE | 2022-02-23 15:53 | Progress Note ---
Assessment and Plan Assessment and plan: #Chest painruled out #Back pain Discontinuing telemetry; patient endorses having back pain and not chest pain. Cardiology consulted; appreciate recs. Unremarkable stress test. Ordering x-ray of right shoulder and right hip. #KATHY on CKD stage IV/Vworsening Creatinine 4.9 (creatinine 3.1 in August 2021) Nephrology consulted; appreciate recs Renally dose meds and avoid nephrotoxic drugs. Patient currently does not require hemodialysis but might in the near future. Holding STEPHANIE/ARB in the setting of KATHY. 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 - hemoglobin A1c: Pending - home regimen: NPH 70-30 16 units twice daily, pregabalin 100 mg twice daily - current regimen: - blood glucose goal 140-180 while inpatient - continue to monitor #Seizure disorder -Continue home Vimpat 100 mg twice daily, Keppra 500 mg twice daily #GERD Continue pantoprazole 20 mg daily #Legally blind #Advanced care planning -Disease education conducted, care plan discussed, diagnoses discussed, prognosis discussed, and patient acknowledges understanding with care plan -Time: +30 min Disposition Plan: Continue medical management Total Time Spent with Patient (Minutes): 45 minutes History Interval history: No acute events overnight. Hospitalist Physical - Constitutional Vitals: Temp Pulse Resp BP Pulse Ox 98.4 F 70 14 132/63 97 02/23/22 07:59 02/23/22 11:29 02/23/22 11:29 02/23/22 11:29 02/23/22 11:29 General appearance: Present: no acute distress, well-nourished, other (Legally blind) - EENT Eyes: Present: PERRL, EOM intact ENT: hearing intact, clear oral mucosa, dentition normal - Neck Neck: Present: supple, normal ROM - Respiratory Respiratory effort: normal Respiratory: bilateral: CTA - Cardiovascular Rhythm: regular Heart Sounds: Present: S1 & S2 - Extremities Extremities: no ischemia, pulses intact, pulses symmetrical, No edema, normal temperature, normal color Extremity abnormal: tenderness (Tenderness of right shoulder, hip, and back) Peripheral Pulses: within normal limits - Abdominal General gastrointestinal: soft, non-tender, non-distended, normal bowel sounds - Integumentary Integumentary: Present: clear, warm, dry - Psychiatric Psychiatric: appropriate mood/affect, intact judgment & insight, memory intact, cooperative - Neurologic Neurologic: CNII-XII intact, moves all extremities - Allied Health Allied health notes reviewed: nursing HEART Score - HEART Score EKG: Non-specific Age: > 65 Risk factors: > 3 risk factors or hx of atherosclerotic disease Troponin: Troponin T 0.043 ng/mL (0.00-0.029) H 02/22/22 04:00 Troponin: < normal limit Results - Labs CBC & Chem 7: 02/22/22 04:00 02/23/22 06:30 Labs: Laboratory Last Values WBC 6.7 K/mm3 (4.5-11.0) 02/22/22 04:00 RBC 3.82 M/mm3 (3.65-5.03) 02/22/22 04:00 Hgb 11.0 gm/dl (11.8-15.2) L 02/22/22 04:00 Hct 32.9 % (35.5-45.6) L 02/22/22 04:00 MCV 86 fl (84-94) 02/22/22 04:00 MCH 29 pg (28-32) 02/22/22 04:00 MCHC 33 % (32-34) 02/22/22 04:00 RDW 14.4 % (13.2-15.2) 02/22/22 04:00 Plt Count 164 K/mm3 (140-440) 02/22/22 04:00 Lymph % (Auto) 24.5 % (13.4-35.0) 02/22/22 04:00 Bowman % (Auto) 8.0 % (0.0-7.3) H 02/22/22 04:00 Eos % (Auto) 2.3 % (0.0-4.3) 02/22/22 04:00 Baso % (Auto) 0.2 % (0.0-1.8) 02/22/22 04:00 Lymph # (Auto) 1.6 K/mm3 (1.2-5.4) 02/22/22 04:00 Bowman # (Auto) 0.5 K/mm3 (0.0-0.8) 02/22/22 04:00 Eos # (Auto) 0.2 K/mm3 (0.0-0.4) 02/22/22 04:00 Baso # (Auto) 0.0 K/mm3 (0.0-0.1) 02/22/22 04:00 Seg Neutrophils % 65.0 % (40.0-70.0) 02/22/22 04:00 Seg Neutrophils # 4.3 K/mm3 (1.8-7.7) 02/22/22 04:00 Sodium 143 mmol/L (137-145) 02/23/22 06:30 Potassium 3.8 mmol/L (3.6-5.0) 02/23/22 06:30 Chloride 107.2 mmol/L (98-107) H 02/23/22 06:30 Carbon Dioxide 23 mmol/L (22-30) 02/23/22 06:30 Anion Gap 17 mmol/L 02/23/22 06:30 BUN 43 mg/dL (9-20) H 02/23/22 06:30 Creatinine 4.9 mg/dL (0.8-1.3) H 02/23/22 06:30 Estimated GFR 14 ml/min 02/23/22 06:30 BUN/Creatinine Ratio 9 % 02/23/22 06:30 Glucose 223 mg/dL (75-100) H 02/23/22 06:30 POC Glucose 255 mg/dL (70-105) H 02/23/22 11:29 Calcium 8.1 mg/dL (8.4-10.2) L 02/23/22 06:30 Total Bilirubin 0.20 mg/dL (0.1-1.2) 02/20/22 20:31 AST 32 units/L (5-40) 02/20/22 20:31 ALT 22 units/L (7-56) 02/20/22 20:31 Alkaline Phosphatase 167 units/L (35-129) H 02/20/22 20:31 Troponin T 0.043 ng/mL (0.00-0.029) H 02/22/22 04:00 Total Protein 6.6 g/dL (6.3-8.2) 02/20/22 20:31 Albumin 3.2 g/dL (3.9-5) L 02/20/22 20:31 Albumin/Globulin Ratio 0.9 % 02/20/22 20:31 Triglycerides 70 mg/dL (2-149) 02/20/22 20:31 Cholesterol 104 mg/dL (50-199) 02/20/22 20:31 LDL Cholesterol Direct 38 mg/dL (50-130) L 02/20/22 20:31 HDL Cholesterol 55 mg/dL (40-59) 02/20/22 20:31 Cholesterol/HDL Ratio 1.89 % 02/20/22 20:31 Urine Total Volume 246 ml 02/23/22 12:00 Urine Creatinine 239.3 mg/dL (0.1-20.0) H 02/23/22 12:00 Ur Total Protein 24 Hr 2113.14 mg/dL (2-200) H 02/23/22 12:00 Protein/Creatinin Ratio 3.59 02/23/22 12:00 Urine Sodium 30 mmol/L 02/23/22 12:00 Urine Total Protein 859 mg/dL (5-11.8) H 02/23/22 12:00 Nasal Screen MRSA (PCR) Negative (Negative) 02/21/22 11:05 Urine Opiates Screen Presumptive negative 02/20/22 Unknown Urine Methadone Screen Presumptive negative 02/20/22 Unknown Ur Barbiturates Screen Presumptive negative 02/20/22 Unknown Ur Phencyclidine Scrn Presumptive negative 02/20/22 Unknown Ur Amphetamines Screen Presumptive negative 02/20/22 Unknown U Benzodiazepines Scrn Presumptive negative 02/20/22 Unknown Urine Cocaine Screen Presumptive negative 02/20/22 Unknown U Marijuana (THC) Screen Presumptive negative 02/20/22 Unknown Drugs of Abuse Note Disclamer 02/20/22 Unknown Johnson/IV: Voiding Method Urinal Active Medications - Current Medications Current Medications: Generic Name Dose Route Start Last Admin Trade Name Freq PRN Reason Stop Dose Admin Acetaminophen 650 mg 02/21/22 01:11 Acetaminophen 325 Mg Tab PO Q4H PRN Pain MILD(1-3)/Fever >100.5/HARRSION Cyclobenzaprine HCl 10 mg 02/21/22 09:25 Cyclobenzaprine 10 Mg Tab PO TID PRN Muscle Spasm Dextrose 50 ml 02/21/22 01:11 Dextrose 50% In Water (25gm) 50 Ml Syringe IV Q30MIN PRN Hypoglycemia Protocol Heparin Sodium (Porcine) 5,000 unit 02/21/22 14:00 02/23/22 13:06 Heparin 5,000 Unit/1 Ml Vial SUB-Q 5,000 unit Q8HR DAVID Administration Hydralazine HCl 10 mg 02/21/22 09:27 02/21/22 16:11 Hydralazine 20 Mg/1 Ml Inj IV 10 mg Q4HR PRN Administration Hypertension Insulin Human Lispro 0 unit 02/21/22 07:30 02/23/22 13:06 Insulin Lispro 100 Unit/Ml SUB-Q 4 unit ACHS DAVID Administration Protocol Labetalol HCl 200 mg 02/21/22 14:00 02/23/22 13:07 Labetalol 200 Mg Tab PO 200 mg TID DAVID Administration Lacosamide 100 mg 02/21/22 12:00 02/23/22 10:13 Lacosamide 100 Mg Tab PO 100 mg Q12HR DAVID Administration Levetiracetam 500 mg 02/23/22 10:00 02/23/22 10:13 Levetiracetam 500 Mg Tab PO 500 mg BID DAVID Administration Morphine Sulfate 2 mg 02/21/22 01:11 02/23/22 08:57 Morphine 2 Mg/1 Ml Inj IV 2 mg Q4H PRN Administration Pain, Moderate (4-6) Morphine Sulfate 4 mg 02/21/22 01:11 Morphine 4 Mg/1 Ml Inj IV Q4H PRN Pain , Severe (7-10) Morphine Sulfate 2 mg 02/21/22 01:11 Morphine 4 Mg/1 Ml Inj IV Q5MIN PRN Chest Pain unrelieved by NTG Nifedipine 30 mg 02/22/22 10:00 02/23/22 10:13 Nifedipine Xl 30 Mg Tab PO 30 mg Q12HR DAVID Administration Nitroglycerin 0.4 mg 02/21/22 01:11 Nitroglycerin 0.4 Mg Tab Subl SL Q5M PRN Chest Pain Ondansetron HCl 4 mg 02/21/22 01:11 Ondansetron 4 Mg/2 Ml Inj IV Q8H PRN Nausea And Vomiting Pantoprazole Sodium 20 mg 02/21/22 12:00 02/23/22 08:57 Pantoprazole 20 Mg Tab PO 20 mg QDAC DAVID Administration Sodium Bicarbonate 325 mg 02/21/22 10:00 02/23/22 10:13 Sodium Bicarbonate 325 Mg Tab PO 325 mg BID DAVID Administration Sodium Chloride 10 ml 02/21/22 10:00 02/23/22 10:14 Sodium Chloride 0.9% 10 Ml Flush Syringe IV 10 ml BID DAIVD Administration Sodium Chloride 10 ml 02/21/22 01:11 Sodium Chloride 0.9% 10 Ml Flush Syringe IV PRN PRN LINE FLUSH Tramadol HCl 50 mg 02/21/22 01:11 02/21/22 09:27 Tramadol 50 Mg Tab PO 50 mg Q6H PRN Administration Pain, Moderate (4-6) Trazodone HCl 100 mg 02/21/22 22:00 02/22/22 21:47 Trazodone 100 Mg Tab PO Not Given QHS [facility] Nutrition/Malnutrition Assess - Dietary Evaluation Nutrition/Malnutrition Findings: Nutrition Notes Start: 02/21/22 14:25 Freq: Status: Active Protocol: Document 02/21/22 14:25 MATTHIAS (Rec: 02/21/22 14:38 MATTHIAS [id number]) Nutrition Notes Need for Assessment generated from: MD Order,Education Initial or Follow up Brief Note Current Diagnosis CKD(stage I-IV),Diabetes, Hypertension Other Pertinent Diagnosis Hepatitis C, Seizures, Chest Pain. Current Diet Cardiac/Consistent Carbohydrates Diet (since L ). Height 5 ft 7 in Weight 75.296 kg [place] Body Weight (kg) 67.27 BMI 25.9 Intake Prior to Admission Good Weight change and time frame Pt states having, unintentionally, loss between 2 and 13 lb recently. Weight Status Overweight Subjective/Other Information RD consult for nutrition education assessment. Pt's PO intake of meals has been Good (100%), according to ADL notes. Pt is on Room Air, O2 saturation @ 100%, according to Physical Assessment History notes. Pt still in critical condition , not a candidate for Nutrition Education at the time, will assess feasibility on F/U. Percent of energy/protein needs met: Prescribed Cardiac/Consistent Carbohydrates Diet provides for energy/protein needs (1, 977 Kcal/86 g) during LOS. Nutrition Intervention Follow-Up By: 02/26/22 Additional Comments Nutrition education will be provided on F/U, if feasible. Continue monitoring food tolerance, %PO intake of meals , and BM.
--- NOTE | 2022-02-23 16:48 | XRay Report ---
RIGHT SHOULDER 3 VIEW(S) INDICATION / CLINICAL INFORMATION: Evaluate for possible arthritis versus trauma COMPARISON: Radiographs dated 01/10/2022 FINDINGS: BONES / JOINT(S): No acute displaced fracture or dislocation. There are mild degenerative changes of the glenohumeral and acromioclavicular joints, similar to prior exam. SOFT TISSUES: No significant abnormality. ADDITIONAL FINDINGS: Stable right chest port and scattered metallic fragments at the left chest. Signer Name: Jose Alfonso MD Signed: 02/23/2022 4:43 PM Workstation Name: [email or web address]
[2022-02-23] MEDS: INSULIN NPH/REGULAR 70/30 INJ SUB-Q SCH (17:13)
[2022-02-23] MEDS: INSULIN REGULAR, HUMAN 100 UNITS/1 ML SUB-Q SCH ×2 (17:13→23:03)
--- NOTE | 2022-02-23 17:18 | XRay Report ---
RIGHT HIP 2 VIEW(S) INDICATION / CLINICAL INFORMATION: Evaluate for possible arthritis versus trauma COMPARISON: 08/29/2019 FINDINGS: BONES / JOINT(S): No acute fracture or subluxation. There is mild narrowing of the right hip joint sp jarrett. SOFT TISSUES: No significant abnormality. ADDITIONAL FINDINGS: None. IMPRESSION: 1. There is mild joint space narrowing in the right hip. Signer Name: Anjel Diaz MD Signed: 02/23/2022 5:14 PM Workstation Name: [email or web address])
--- NOTE | 2022-02-23 18:42 | Electrocardiograph Report ---
[facility] Test Date: 2022-02-20 Test Time: 20:37:38 Pat Name: KIMBERLEY LOPEZ Department: Room: A486 1 Gender: M Automobile Mechanic Apprentice: : 1950 Requested By: TACOS MUÑOZ Order Number: [id number] Reading MD: Chacho Trejo Measurements Intervals [place] Rate: 63 P: 69 [place]: 259 QRS: 25 QRSD: 91 T: 70 QT: 459 QTc: 469 Interpretive Statements Sinus rhythm Prolonged [place] interval Probable left atrial enlargement Compared to ECG 01/10/2022 17:02:08 No significant changes Electronically Signed On 02-23-2022 18:41:54 EDT by Chacho Trejo
--- NOTE | 2022-02-23 18:47 | Electrocardiograph Report ---
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
[2022-02-23] MEDS ORDERED: MAGNESIUM HYDROXIDE (MOM) ORAL LIQD UDC PO PRN (21:25)
[2022-02-23] MEDS: traZODone 100 MG TAB PO SCH (22:04)
[2022-02-24 04:30] LABS: Calcium 8.3 mg/dL (8.4-10.2)
[2022-02-24] MEDS: MORPHINE 2 MG/1 ML INJ IV PRN ×2 (05:03→09:30)
[2022-02-24] MEDS: HEPARIN 5,000 UNIT/1 ML VIAL SUB-Q SCH ×2 (05:24→13:29)
[2022-02-24] MEDS: SODIUM BICARBONATE 325 MG TAB PO SCH (09:40)
[2022-02-24] MEDS: levETIRAcetam 500 MG TAB PO SCH (09:42)
[2022-02-24] MEDS: LACOSAMIDE 100 MG TAB PO SCH (09:42)
[2022-02-24] MEDS: NIFEdipine XL 30 MG TAB PO SCH (09:43)
[2022-02-24] MEDS: PANTOPRAZOLE 20 MG TAB PO SCH (09:46)
[2022-02-24] MEDS: INSULIN REGULAR, HUMAN 100 UNITS/1 ML SUB-Q SCH ×3 (09:47→18:04)
[2022-02-24] MEDS: INSULIN NPH/REGULAR 70/30 INJ SUB-Q SCH ×2 (09:51→18:05)
--- NOTE | 2022-02-24 09:58 | Electrocardiograph Report ---
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
[2022-02-24] MEDS ORDERED: CALCITRIOL 0.5 MCG CAP PO SCH (10:00)
--- NOTE | 2022-02-24 10:05 | Progress Note ---
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 cr is worse today, follow up crcl and daily lytes give gentle ivfs today avoid nephrotoxins There is no urgent or emergent indication for renal placement therapy at this time patiently monitor, obtain renal related labs, if renal failure fails to respond consider access planning in near future, cr was in 3.6, 1.1 in 2019 and 1.2 in 2014 Creatinine was noted to be 3.1 in August 2021, so likely progression of adv CKD History of proteinuria low-grade, will need follow-up on this, Admitted here with chest pain, chronic kidney disease patients have higher prevalence of coronary artery disease and hence this must be pursued with a cardiac work-up--stress pending #History of hepatitis C that has been treated #Legally blind #Longstanding history of hypertension diabetes chronic kidney disease, now being admitted here with worsening renal failure creatinine was 3.1 in August 2021 If you have any question in regards to this patient renal care please feel free to contact me at [phone] Source of information: From patient/as well as old records that were also rev iewed Subjective: 71-year-old male who is being admitted here with chest pain, retrosternal radiating to right neck and right shoulder, work-up in progress, known history of chronic kidney disease but has never followed up in the office current creatinine is 3.9 at admission no acute issues today labs and chart reviewed Review of system: Positive for chest pain, All other review of systems negative Physical examination Vitals: Reviewed General: No acute distress HEENT: Oral mucosa moist no pallor or icterus Neck: Supple without any JVD thyromegaly or nodular mass Chest: Clear to auscultation Heart: Regular rate and rhythm S1-S2 heard no S3-S4 Abdomen: Soft nontender, bowel sounds present no renal bruit no suprapubic masses no CVA tenderness noted Extremity: Minimal edema dry skin no peripheral cyanosis Endocrine: Thyroid not enlarged Psychiatric: No agitation and aggression noted Musculoskeletal: No joint effusion noted Labs and x-rays: Reviewed from this admission Objective - Vital Signs Vital signs: Vital Signs - 12hr 02/23/22 02/24/22 02/24/22 23:38 03:40 05:50 Temperature 98.9 F 98.6 F Pulse Rate 70 72 64 Respiratory 18 19 Rate Blood Pressure 133/61 133/74 O2 Sat by Pulse 93 96 Oximetry 02/24/22 07:41 Temperature 98.1 F Pulse Rate 75 Respiratory 18 Rate Blood Pressure 138/62 O2 Sat by Pulse 96 Oximetry - Lab 02/22/22 04:00 02/24/22 04:00 Most recent lab results Calcium 8.3 mg/dL (8.4-10.2) L 02/24/22 04:00 Urine Creatinine 239.3 mg/dL (0.1-20.0) H 02/23/22 12:00 Ur Total Protein 24 Hr 2113.14 mg/dL (2-200) H 02/23/22 12:00 Urine Sodium 30 mmol/L 02/23/22 12:00 Urine Total Protein 859 mg/dL (5-11.8) H 02/23/22 12:00 Medications & Allergies - Medications Allergies/Adverse Reactions: Allergies No Known Allergies Allergy (Verified 02/20/22 21:19) Home Medications: Home Medications Medication Instructions Recorded Confirmed Last Taken Type traZODone [Desyrel] 100 mg PO QHS 09/20/15 02/21/22 09/19/15 History raNITIdine HCL [Acid Control] 150 mg PO BID 11/16/19 02/21/22 Unknown History Novolin 70-30 Flexpen 16 unit SQ BID 08/24/21 02/21/22 Unknown History Pregabalin 100 mg PO BID 08/24/21 02/21/22 Unknown History Prilosec 20 mg PO DAILY 08/24/21 02/21/22 Unknown History Lacosamide [Vimpat] 100 mg PO Q12HR 30 Days #60 tablet 08/28/21 02/21/22 Unknown Rx Potassium Chloride [K-Dur] 20 meq PO QDAY 30 Days #30 tablet 08/28/21 02/21/22 Unknown Rx Rosuvastatin Calcium [Crestor] 20 mg PO HS 30 Days #30 tab 08/28/21 02/21/22 Unknown Rx Sodium Bicarbonate 325 mg PO BID 30 Days #30 tablet 08/28/21 02/21/22 Unknown Rx amLODIPine 10 mg PO DAILY 30 Days #30 tab 08/28/21 02/21/22 Unknown Rx Cyclobenzaprine [Flexeril] 10 mg PO TID PRN #14 01/10/22 02/21/22 Unknown Rx HYDROcodone/APAP 5-325 [[place] 1 - 2 each PO Q6HR PRN #14 tablet 01/10/22 02/21/22 Unknown Rx 5/325] Active Medications: Generic Name Dose Route Start Last Admin Trade Name Freq PRN Reason Stop Dose Admin Acetaminophen 650 mg 02/21/22 01:11 Acetaminophen 325 Mg Tab PO Q4H PRN Pain MILD(1-3)/Fever >100.5/HARRISON Atorvastatin Calcium 40 mg 02/23/22 22:00 02/23/22 22:04 Atorvastatin 40 Mg Tab PO 40 mg QHS DAVID Administration Calcitriol 0.5 mcg 02/24/22 10:00 02/24/22 09:44 Calcitriol 0.5 Mcg Cap PO 0.5 mcg QDAY DAVID Administration Cyclobenzaprine HCl 10 mg 02/21/22 09:25 Cyclobenzaprine 10 Mg Tab PO TID PRN Muscle Spasm Dextrose 50 ml 02/21/22 01:11 02/23/22 17:12 Dextrose 50% In Water (25gm) 50 Ml Syringe IV 50 ml Q30MIN PRN Administration Hypoglycemia Protocol Heparin Sodium (Porcine) 5,000 unit 02/21/22 14:00 02/24/22 05:24 Heparin 5,000 Unit/1 Ml Vial SUB-Q 5,000 unit Q8HR DAVID Administration Hydralazine HCl 10 mg 02/21/22 09:27 02/21/22 16:11 Hydralazine 20 Mg/1 Ml Inj IV 10 mg Q4HR PRN Administration Hypertension Insulin Human Isoph/Insulin Regular 16 unit 02/23/22 17:00 02/24/22 09:51 Insulin Nph/Regular 70/30 Inj SUB-Q 16 unit BIDDIAB DAVID Administration Insulin Human Regular 0 units 02/23/22 16:30 02/24/22 09:47 Insulin Regular, Human 100 Units/1 Ml SUB-Q 2 units ACHS DAVID Administration Protocol Labetalol HCl 200 mg 02/21/22 14:00 02/24/22 09:46 Labetalol 200 Mg Tab PO Not Given TID DAVID Lacosamide 100 mg 02/21/22 12:00 02/24/22 09:42 Lacosamide 100 Mg Tab PO 100 mg Q12HR DAVID Administration Levetiracetam 500 mg 02/23/22 10:00 02/24/22 09:42 Levetiracetam 500 Mg Tab PO 500 mg BID DAVID Administration Magnesium Hydroxide 30 ml 02/23/22 21:25 02/23/22 22:04 Magnesium Hydroxide (Mom) Oral Liqd Udc PO 03/01/22 23:59 30 ml QDAY PRN Administration Constipation Morphine Sulfate 2 mg 02/21/22 01:11 02/24/22 09:30 Morphine 2 Mg/1 Ml Inj IV 2 mg Q4H PRN Administration Pain, Moderate (4-6) Morphine Sulfate 4 mg 02/21/22 01:11 Morphine 4 Mg/1 Ml Inj IV Q4H PRN Pain , Severe (7-10) Morphine Sulfate 2 mg 02/21/22 01:11 Morphine 4 Mg/1 Ml Inj IV Q5MIN PRN Chest Pain unrelieved by NTG Nifedipine 30 mg 02/22/22 10:00 02/24/22 09:43 Nifedipine Xl 30 Mg Tab PO 30 mg Q12HR DAVID Administration Nitroglycerin 0.4 mg 02/21/22 01:11 Nitroglycerin 0.4 Mg Tab Subl SL Q5M PRN Chest Pain Ondansetron HCl 4 mg 02/21/22 01:11 Ondansetron 4 Mg/2 Ml Inj IV Q8H PRN Nausea And Vomiting Pantoprazole Sodium 20 mg 02/21/22 12:00 02/24/22 09:46 Pantoprazole 20 Mg Tab PO 20 mg QDAC DAVID Administration Sevelamer Carbonate 800 mg 02/24/22 11:30 Sevelamer Carbonate 800 Mg Tab PO AC DAVID Sodium Bicarbonate 325 mg 02/21/22 10:00 02/24/22 09:40 Sodium Bicarbonate 325 Mg Tab PO 325 mg BID DAVID Administration Sodium Chloride 10 ml 02/21/22 10:00 02/24/22 09:31 Sodium Chloride 0.9% 10 Ml Flush Syringe IV 10 ml BID DAVID Administration Sodium Chloride 10 ml 02/21/22 01:11 Sodium Chloride 0.9% 10 Ml Flush Syringe IV PRN PRN LINE FLUSH Tramadol HCl 50 mg 02/21/22 01:11 02/21/22 09:27 Tramadol 50 Mg Tab PO 50 mg Q6H PRN Administration Pain, Moderate (4-6) Trazodone HCl 100 mg 02/21/22 22:00 02/23/22 22:04 Trazodone 100 Mg Tab PO 100 mg QHS DAVID Administration
--- NOTE | 2022-02-24 10:23 | Progress Note ---
Assessment and Plan - Patient Problems (1) Chest pain Current Visit: Yes Status: Acute Plan to address problem: Atypical chest pain, negative cardiac workup including normal thallium stress. We will follow intermittently. Subjective Date of service: 02/24/22 Principal diagnosis: Chest pain Interval history: Patient is comfortable, no new cardiac complaints. Lexiscan thallium stress was normal. Objective Vital Signs Temp Pulse Resp BP Pulse Ox 02/24/22 07:41 98.1 F 75 18 138/62 96 02/24/22 05:50 64 02/24/22 03:40 98.6 F 72 19 133/74 96 02/23/22 23:38 98.9 F 70 18 133/61 93 02/23/22 22:00 70 17 98 02/23/22 20:44 63 142/62 02/23/22 19:27 97.7 F 63 16 142/62 96 02/23/22 16:54 68 14 135/68 97 02/23/22 14:00 63 02/23/22 11:29 70 14 132/63 97 - Physical Examination General: No Apparent Distress HEENT: Positive: PERRL Neck: Positive: neck supple Cardiac: Positive: Reg Rate and Rhythm Lungs: Positive: Decreased Breath Sounds Neuro: Positive: Grossly Intact Abdomen: Positive: Soft Skin: Positive: Clear Extremities: Absent: edema - Labs and Meds Comprehensive Metabolic Panel 02/24/22 Range/Units 04:00 Sodium 143 (137-145) mmol/L Potassium 4.0 (3.6-5.0) mmol/L Chloride 107.9 H (98-107) mmol/L Carbon Dioxide 23 (22-30) mmol/L BUN 46 H (9-20) mg/dL Creatinine 5.1 H (0.8-1.3) mg/dL Glucose 170 H (75-100) mg/dL Calcium 8.3 L (8.4-10.2) mg/dL
[2022-02-24] MEDS ORDERED: SODIUM CHLORIDE 0.45% 1000 ML 1,000 ML IV SCH (11:00)
--- NOTE | 2022-02-24 12:45 | Discharge Summary ---
Providers - Providers Date of Admission: 02/21/22 02:22 Date of discharge: 02/24/22 Attending physician: JONATHAN BUSCH MD 02/21/22 Consult to Cardiac Rehabilitation [CONS] Routine Reason For Exam: Phase I 02/21/22 01:14 Consult to Cardiology [CONS] Routine Consulting Provider: HARPAL ESQUEDA Reason For Exam: chest pain Consult to Dietitian/Nutrition [CONS] Routine Physician Instructions: Reason For Exam: Reason for Consult: Diet education 02/21/22 07:06 Consult to Physician [CONS] Routine Comment: Consulting Provider: BETHANY VACA Physician Instructions: Reason For Exam: Acute on chronic kidney disease Primary care physician: MARQUES ARAUJO Hospitalization Reason for admission: KATHY on CKD stage IV/V Condition: Stable Pertinent studies: Reviewed. Procedures: Myocardial perfusion scan Hospital course: Patient is a 71-year-old male past medical history of hypertension, insulin- dependent type 2 diabetes mellitus, history of hepatitis C, and CKD stage IV/V who presented to the ED with substernal chest pain radiating towards his right shoulder. He endorsed that his symptoms are worsened with exertion without any relieving or exacerbating factors. He described the pain as 8/10. In the ED, he was found to be hemodynamically stable with elevated blood pressures. Troponins were unremarkable, cardiology was consulted for further management. Patient underwent myocardial perfusion that was unremarkable for ischemia. Troponins continue to remain relatively unremarkable. Nephrology was consulted regarding his KATHY on CKD stage in August 2021, the patient's creatinine was 3.1. On presentation in the ED, his creatinine was 3.9 with a max of 5.14. Nephrology did not recommend initiating hemodialysis at this point in time. Patient was counseled about avoiding nephrotoxic medications. Due to complaints of severe pain in his right shoulder and hip, x-rays were obtained revealing osteoarthritis. Patient was educated on the fact that his pain will likely not be completely alleviated; however, it can be reduced. Patient expressed understanding. Patient is medically cleared for discharge. Disposition: HOME / SELF CARE / HOMELESS Final Discharge Diagnosis (Prints w/discharge instructions): Chest pain, back pain, KATHY on CKD stage IV/V, hypertension, hyperlipidemia, insulin-dependent type 2 diabetes mellitus with hyperglycemia, insulin-dependent type 2 diabetes melitis complicated by diabetic neuropathy, seizure disorder, GERD, legally blind, osteoarthritis of right shoulder and hip. Time spent for discharge: 45 min Core Measure Documentation - Palliative Care Palliative Care/ Comfort Measures: Not Applicable - Core Measures Any of the following diagnoses?: history only Exam - Constitutional Vitals: Temp Pulse Resp BP Pulse Ox 98.1 F 75 18 138/62 96 02/24/22 07:41 02/24/22 07:41 02/24/22 07:41 02/24/22 07:41 02/24/22 07:41 General appearance: Present: no acute distress, well-nourished, other (Legally blind) - EENT Eyes: Present: PERRL ENT: hearing intact, clear oral mucosa, dentition normal - Neck Neck: Present: supple, normal ROM - Respiratory Respiratory effort: normal Respiratory: bilateral: CTA - Cardiovascular Rhythm: regular Heart Sounds: Present: S1 & S2 - Extremities Extremities: no ischemia, pulses intact, pulses symmetrical, No edema, normal temperature, normal color Extremity abnormal: tenderness (Moderate tenderness of right shoulder and hip) Peripheral Pulses: within normal limits - Abdominal General gastrointestinal: Present: soft, non-tender, non-distended, normal bowel sounds Male genitourinary: Present: deferred - Rectal Rectal Exam: deferred - Integumentary Integumentary: Present: clear, warm, dry - Musculoskeletal Musculoskeletal: generalized weakness - Psychiatric Psychiatric: appropriate mood/affect, intact judgment & insight, memory intact, cooperative - Neurologic Neurologic: CNII-XII intact, moves all extremities - Allied Health Allied health notes reviewed: nursing Plan Activity: advance as tolerated Diet: low salt, diabetic Additional Instructions: Patient is a 71-year-old male past medical history of hypertension, insulin-dependent type 2 diabetes mellitus, history of hepatitis C, and CKD stage IV/V who presented to the ED with substernal chest pain radiating towards his right shoulder. He endorsed that his symptoms are worsened with exertion without any relieving or exacerbating factors. He described the pain as 8/10. In the ED, he was found to be hemodynamically stable with elevated blood pressures. Troponins were unremarkable, cardiology was consulted for further management. Patient underwent myocardial perfusion that was unremarkable for ischemia. Troponins continue to remain relatively unremarkable. Nephrology was consulted regarding his KATHY on CKD stage in August 2021, the patient's creatinine was 3.1. On presentation in the ED, his creatinine was 3.9 with a max of 5.14. Nephrology did not recommend initiating hemodialysis at this point in time. Patient was counseled about avoiding nephrotoxic medications. Due to complaints of severe pain in his right shoulder and hip, x-rays were obtained revealing osteoarthritis. Patient was educated on the fact that his pain will likely not be completely alleviated; however, it can be reduced. Patient expressed understanding. Patient is medically cleared for discharge. Care Plan Goals: Patient is medically clear for discharge. Assessment: Patient is a 71-year-old male past medical history of hypertension, insulin- dependent type 2 diabetes mellitus, history of hepatitis C, and CKD stage IV/V who presented to the ED with substernal chest pain radiating towards his right shoulder. He endorsed that his symptoms are worsened with exertion without any relieving or exacerbating factors. He described the pain as 8/10. In the ED, he was found to be hemodynamically stable with elevated blood pressures. Troponins were unremarkable, cardiology was consulted for further management. Patient underwent myocardial perfusion that was unremarkable for ischemia. Troponins continue to remain relatively unremarkable. Nephrology was consulted regarding his KATHY on CKD stage in August 2021, the patient's creatinine was 3.1. On presentation in the ED, his creatinine was 3.9 with a max of 5.14. Nephrology did not recommend initiating hemodialysis at this point in time. Patient was counseled about avoiding nephrotoxic medications. Due to complaints of severe pain in his right shoulder and hip, x-rays were obtained revealing osteoarthritis. Patient was educated on the fact that his pain will likely not be completely alleviated; however, it can be reduced. Patient expressed understanding. Patient is medically cleared for discharge. Prescriptions: traZODone [Desyrel] 100 mg PO QHS #30 tab Cyclobenzaprine [Flexeril 10 MG TAB] 10 mg PO TID PRN #30 tab PRN Reason: Muscle Spasm levETIRAcetam [Keppra TAB] 500 mg PO BID #60 tablet labetaloL [Labetalol 200mg TAB] 200 mg PO TID #90 tablet NIFEdipine XL [Procardia Xl] 30 mg PO Q12HR #60 tablet Sevelamer Carbonate [Renvela] 800 mg PO AC #90 tablet calcitrioL [Rocaltrol] 0.5 mcg PO QDAY #30 capsule traMADoL [Ultram 50 MG tab] 50 mg PO Q6H PRN #60 tablet PRN Reason: Pain, Moderate (4-6) Lacosamide [Vimpat] 100 mg PO Q12HR 30 Days #60 tablet Capsaicin 0.075% [Zostrix Hp 0.075%] 1 applic TP QID #2 tube
[2022-02-24] MEDS: SEVELAMER CARBONATE 800 MG TAB PO SCH ×2 (13:29→18:05)
[2022-02-24] MEDS ORDERED: CAPSAICIN 0.075% CREAM 60 GM TP SCH (14:00)
[2022-02-24 17:32] VITALS: BP 154/67
== END 2022-02-24 17:45 | disposition home or self-care (01) | DRG 683 ==
LOC: ED 19:37 → 4A 02-21 02:22
PROVIDERS: ADMIT Internal Medicine Geriatric Medicine; ATTEND Student in an Organized Health Care Education/Training Program
DX: N17.9 Acute kidney failure, unspecified (principal); I16.1 Hypertensive emergency; N18.9 Chronic kidney disease, unspecified; E11.22 Type 2 diabetes mellitus with diabetic chronic kidney disease; G40.909 Epilepsy, unspecified, not intractable, without status epilepticus; I12.9 Hypertensive chronic kidney disease with stage 1 through stage 4 chronic kidney disease, or unspecified chronic kidney disease; E78.5 Hyperlipidemia, unspecified; Z90.49 Acquired absence of other specified parts of digestive tract; N18.4 Chronic kidney disease, stage 4 (severe); K21.9 Gastro-esophageal reflux disease without esophagitis; E11.65 Type 2 diabetes mellitus with hyperglycemia; E11.40 Type 2 diabetes mellitus with diabetic neuropathy, unspecified; M16.11 Unilateral primary osteoarthritis, right hip; M19.011 Primary osteoarthritis, right shoulder
CPT/HCPCS: 36415; 70450; 71045; 78452; 80048; 80053; 80061; 80307; 82570; 82962; 83970; 84156; 84300; 84484; 85025; 87641; 93005; 93017; 93306; G0378; J3490; J7060; Q0177; Q9967; A9502; C8929; J0360; J1170; J1644; J1815; J1953; J2060; J2270; J2405; J2785